=== PATIENT | male | born 1955 | race Caucasian/White ===

== ENCOUNTER → 2016-11-22 | Outpatient (CLI) | payer OTHER ==
[~2016-11-22] MED LIST: AMOX875T2 PO; CODE118S2 PO; LEVO500T80 PO; NAPR550T PO; RT-ALBUINH IH
--- OUTSIDE RECORDS SUMMARY | 2016-11-22 08:57 | XMS REPORT | Continuity of Care Document ---
Author Author [facility] Organization [facility] Address Unknown Phone Unavailable Care Team Providers Care Dice Spotter Name Role Phone BETTIE ZIEGLER MD PCP Insurance Providers Payer Name Policy Number Subscriber Name Relationship Self Pay Pending Annette Apprv [id number] Nanda Lema 18 Self / Same As Patient Advance Directives Directive Response Recorded Date/Time Advance Directives No 08/29/16 7:42am Health Care Power of Electromechanical Inspector No 08/29/16 7:42am Organ Donor No 08/29/16 7:42am Resuscitation Status Full Code 08/29/16 7:42am Problems No problem information available. Medications Current Home Medications Medication Dose Units Route Directions Days/Qty Instructions Start Date Amoxicillin 875 Mg 875 Mg Oral Twice A Day 08/12/16 Promethazine Hcl/Codeine 118 Ml 5 Ml Oral Every 4HRS as needed for Cough 08/12/16 Albuterol Sulfate 8.5 Gm 2 Puff Inhalation Four Times Daily 08/12/16 Levofloxacin 500 Mg 500 Mg Oral Daily 08/12/16 Naproxen Sodium (Naproxen) 550 Mg 550 Mg Oral Twice A Day as needed for Pain 08/12/16 Social History Social History Problem Response Recorded Date/Time Alcohol Use Occasionally Uses 08/29/2016 7:42am Recreational Drug Use No 08/29/2016 7:42am Recent Foreign Travel No 08/29/2016 1:40pm Recent Infectious Disease Exposure No 08/29/2016 1:40pm Sexually Transmitted Disease No 08/29/2016 7:42am HIV/AIDS No 08/29/2016 7:42am Smoking Status Current Everyday Smoker 08/29/2016 7:42am Type Used Cigarettes 08/29/2016 2:39pm Recent Hopitalizations No 08/29/2016 7:42am Sexually Transmitted Disease No 08/29/2016 7:42am Query Response Start Date Stop Date Smoking Status Current Everyday Smoker Hospital Discharge Instructions No hospital discharge instructions. Plan of Care Discharge Date 08/29/16 2:00pm Instructions/Education Provided Needle Biopsy of the Lung and Pleura Prescriptions See Medication Section Functional Status Query Response Date Recorded Patient Orientation Person Place Time Situation Normal For Age August 29, 2016 2:39pm Allergies, Adverse Reactions, Alerts No known allergies. Immunizations Name Given Type FLU TRIvalent 5 years - Adult 08/29/16 Administered Vital Signs Acute Vital Signs Vital Response Date/Time Temperature (Fahrenheit) 98.0 degrees F (97.6 - 99.5) 08/29/2016 2:00pm Temperature (Calculated Celsius) 36.79618 degrees C (36.4 - 37.5) 08/29/2016 12:30pm Temperature Source Temporal 08/29/2016 12:30pm Pulse Rate (adult) 60 bpm (60 - 90) 08/29/2016 2:00pm Respiratory Rate 18 bpm (12 - 24) 08/29/2016 2:00pm O2 Sat by Pulse Oximetry 96 % (88 - 100) 08/29/2016 2:00pm Blood Pressure 138/88 mm Hg 08/29/2016 2:00pm Blood Pressure Mean 106 mm Hg 08/29/2016 12:30pm Pain Numeric Pain Scale 0-No Pain 08/29/2016 2:00pm Pain Intensity 0 08/14/2016 9:45am Height (Feet) 5 feet 08/29/2016 8:01am Height (Inches) 7.00 inches 08/29/2016 8:01am Height (Calculated Centimeters) 170.475433 cm 08/29/2016 8:01am Weight (Pounds) 121 pounds 08/29/2016 8:01am Weight (Ounces) 3.0 oz 08/29/2016 8:01am Weight (Calculated Grams) 59655.73 gm 08/29/2016 8:01am Weight (Calculated Kilograms) 54.938786 kilograms 08/29/2016 8:01am Calculated BMI 19.0 08/29/2016 8:01am Results Laboratory Results Test Name Result Units Flags Reference Collection Date/Time Result Date/ Time Comments White Blood Count 14.5 10^3/uL H 4.3-11.0 08/01/2016 11:52am 08/01/2016 12:03pm Red Blood Count 3.59 10^6/uL L 4.35-5.85 08/01/2016 11:52am 08/01/2016 12 :03pm Hemoglobin 12.3 G/DL L 13.3-17.7 08/01/2016 11:52am 08/01/2016 12:03pm Hematocrit 34 % L 40-54 08/01/2016 11:52am 08/01/2016 12:03pm Mean Corpuscular Volume 95 FL 80-99 08/01/2016 11:52am 08/01/2016 12: 03pm Mean Corpuscular Hemoglobin 34 PG 25-34 08/01/2016 11:52am 08/01/2016 12:03pm Mean Corpuscular Hemoglobin Concent 36 G/DL 32-36 08/01/2016 11:52am 12:03pm Red Cell Distribution Width 12.7 % 10.0-14.5 08/01/2016 11:52am 2015 12:03pm Platelet Count 324 10^3/uL 130-400 08/01/2016 11:52am 08/01/2016 12: 03pm Mean Platelet Volume 10.0 FL 7.4-10.4 08/01/2016 11:52am 08/01/2016 12: 03pm Neutrophils (%) (Auto) 84 % H 42-75 08/01/2016 11:52am 08/01/2016 12: 03pm Lymphocytes (%) (Auto) 8 % L 12-44 08/01/2016 11:52am 08/01/2016 12:03pm Monocytes (%) (Auto) 7 % 0-12 08/01/2016 11:52am 08/01/2016 12:03pm Eosinophils (%) (Auto) 0 % 0-10 08/01/2016 11:52am 08/01/2016 12:03pm Basophils (%) (Auto) 0 % 0-10 08/01/2016 11:5208/01/2016 12:03pm Neutrophils # (Auto) 12.2 X 10^3 H 1.8-7.8 08/01/2016 11:5208/01/2016 12:03pm Lymphocytes # (Auto) 1.2 X 10^3 1.0-4.0 08/01/2016 11:52am 08/01/2016 12:03pm Monocytes # (Auto) 1.1 X 10^3 H 0.0-1.0 08/01/2016 11:52am 08/01/2016 12: 03pm Eosinophils # (Auto) 0.0 10^3/uL 0.0-0.3 08/01/2016 11:52am 08/01/2016 12:03pm Basophils # (Auto) 0.0 10^3/uL 0.0-0.1 08/01/2016 11:52am 08/01/2016 12 :03pm Neutrophils % (Manual) 83 % 08/01/2016 11:52am 08/01/2016 12:54pm Band Neutrophils 0 % 08/01/2016 11:52am 08/01/2016 12:54pm Lymphocytes % (Manual) 8 % 08/01/2016 11:52am 08/01/2016 12:54pm Monocytes % (Manual) 9 % 08/01/2016 11:52am 08/01/2016 12:54pm Eosinophils % (Manual) 0 % 08/01/2016 11:52am 08/01/2016 12:54pm Basophils % (Manual) 0 % 08/01/2016 11:52am 08/01/2016 12:54pm Blood Morphology Comment NORMAL 08/01/2016 11:5208/01/2016 12: 54pm Sodium Level 131 MMOL/L L 135-145 08/01/2016 11:52am 08/01/2016 12:31pm Potassium Level 3.8 MMOL/L 3.6-5.0 08/01/2016 11:52am 08/01/2016 12: 31pm Chloride Level 97 MMOL/L L 98-107 08/01/2016 11:52am 08/01/2016 12:31pm Carbon Dioxide Level 22 MMOL/L 21-32 08/01/2016 11:52am 08/01/2016 12: 31pm Anion Gap 12 MMOL/L 5-14 08/01/2016 11:52am 08/01/2016 12:31pm Blood Urea Nitrogen 5 MG/DL L 7-18 08/01/2016 11:52am 08/01/2016 12:31pm Creatinine 0.68 MG/DL 0.60-1.30 08/01/2016 11:52am 08/01/2016 12:31pm BUN/Creatinine Ratio 7 08/01/2016 11:52am 08/01/2016 12:31pm Estimat Glomerular Filtration Rate > 60 08/01/2016 11:52am 2015 12:31pm GFR INTERPRETIVE DATA UNITS FOR ESTIMATED GFR (eGFR): mL/min/1.73 M2 REFERENCE RANGE FOR ESTIMATED GFR (eGFR) eGFR NORMAL eGFR >60 MODERATELY DECREASED eGFR 30-59 SEVERLY DECREASED eGFR 15-29 KIDNEY FAILURE <15 (OR DIALYSIS) Glucose Level 94 MG/DL 70-105 08/01/2016 11:52am 08/01/2016 12:31pm Calcium Level 9.0 MG/DL 8.5-10.1 08/01/2016 11:52am 08/01/2016 12:31pm TB Test (QFT) Interpretation Indeterminate * Negative 08/01/2016 11: 52am 08/05/2016 9:40am TB Test (QFT) Nil 0.04 IU/mL 0.00-7.99 08/01/2016 11:52am 08/05/2016 9: 40am The Nil tube, the negative control, is important to determine if the patient has a pre-existing immune response due to any one of numerous stimuli (e.g. viral infection, etc.) which would provide a false-positive result. The value of the Nil tube must be <=8.0 IU/mL in order to have reliable results. If the IFN-gamma NIL level is > 8.0 IU/mL the results of the test is reported as indeterminate. The mitogen (PHA) control tube is important to assure that the patient has healthy and competent immune capabilities. This assay will also assure that the patient's cells have been collected, managed and incubated correctly. Patient's who are immunosuppressed/immunodeficient due to acquired immune deficiency (e.g. viral infections such as HIV, immunosuppressive drugs, etc.) or genetic immunodeficiency will have a weak or an absence of the PHA mitogen stimulated blastogenesis and thus will give a false negative result. The mitogen tube must be above the required IFN-gamma value of >=0.5 IU/mL greater than the Nil tube or the reported result of the test is considered indeterminate. The TB antigen tube which is coated with selected Mycobacterium tuberculosis antigens can only be interpreted if the Nil tube and mitogen tube meet the designated criteria. For the test to be considered positive, the TB antigen tube minus the Nil tube value must be >=0.35 IU/mL. 05/03/2015 TB Test (QFT) Mitogen Minus Nil 0.18 IU/mL L 0.50-10.00 08/01/2016 11: 52am 08/05/2016 9:40am TB Test (QFT) TB - Nil 0.01 IU/mL 0.00-0.34 08/01/2016 11:52am 2015 9:40am Test performed at [facility], CLIA# [id number] [address] [place] [address] Pending Laboratory Results Test Name Collection Date/Time Microbiology Results Procedure Source Result Collection Date/Time Result Date/Time Sputum Culture Sputum, Induced HAEMOPHILUS SP, NOT INFLUENZAE 08/01/2016 11: 51am 08/05/2016 10:59am Normal michael 08/01/2016 11:51am 08/05/2016 10:59am STREP, BETA HEMOLYTIC GROUP C 08/01/2016 11:51am 08/05/2016 10:59am Pending Microbiology Results Procedure Source Collection Date/Time Procedures Procedure Status Date Provider(s) DX BRONCHOSCOPE/LAVAGE Completed 08/14/16 KB LOYA DO Encounters Encounter Location Arrival/Admit Date Discharge/Depart Date Attending Provider Departed [facility] 08/29/16 6:58am 2:00pm KB LOYA DO Registered Clinic [facility] 08/22/16 12:12pm KB LOYA DO Departed [facility] 08/14/16 6:47am 10:10am KB LOYA DO Registered Clinic [facility] 08/12/16 5:43am KB LOYA DO Registered Clinic [facility] 08/01/16 11:37am KB LOYA DO
--- NOTE | 2016-11-22 10:11 | Diagnostic Imaging Report ---
PROCEDURE: CT chest without contrast. TECHNIQUE: Multiple contiguous axial images were obtained through the chest without the use of intravenous contrast. INDICATION: COPD. Lung mass. COMPARISON: 09/25/2016. FINDINGS: The previously seen left upper lobe anterior cavitary lesion with mass is now reduced to a nodule with no remaining cavitation seen. The lesion measures 3 x 1.5 x 1.5 cm and is smaller compared to the previous study with comparable measurements of 3.9 x 1.3 cm are obtained. There is no other consolidation, mass or suspicious nodule seen in the left lung. The right lung demonstrates a calcified granuloma in the right middle lobe and mild scarring in the inferior aspect of the right middle lobe. There is no pleural or pericardial effusion. The thoracic aorta is normal in caliber. There are calcified granulomas in the right hilum and in the mediastinum with no significantly enlarged lymph nodes seen. No enlarged axillary nodes are noted. The osseous structures demonstrate mild degenerative changes. IMPRESSION: 3 cm elongated pulmonary nodule in the left upper lobe with resolution of previously seen cavitary component. The lesion is slightly smaller compared to the previous study. Correlate clinically and with biopsy results. Dictated by: Dictated on workstation # [id number]
== END ==
LOC: RAD 08:51
PROVIDERS: ATTEND Internal Medicine Critical Care Medicine
DX: R91.8 Other nonspecific abnormal finding of lung field (principal); J44.9 Chronic obstructive pulmonary disease, unspecified; Z72.0 Tobacco use; R91.1 Solitary pulmonary nodule
CPT/HCPCS: 71250

== ENCOUNTER → 2017-05-26 | Outpatient (CLI) | payer OTHER ==
--- NOTE | 2017-05-26 10:10 | Diagnostic Imaging Report ---
PROCEDURE: CT chest without contrast. TECHNIQUE: Multiple contiguous axial images were obtained through the chest without the use of intravenous contrast. INDICATION: Six-month followup pulmonary nodule. Comparison made with study from 11/22/2016. The consolidating lesion in the left upper lobe is present measuring 8 x 15 mm axial plane on image 30. An identical slice the prior study it measured 18 x 11 mm, so this has shown slight interval reduction in size. There appears to be some extension to the mediastinum and peripheral pleura a small linear fibrotic bands. This also is unchanged. There is calcified granuloma in the right lung with some small calcified hilar lymph nodes on the right as well some calcified subcarinal mediastinal lymph nodes. There is coronary atherosclerosis present. There are no infiltrates, effusions or pneumothoraces. IMPRESSION: Left upper lobe consolidation showing interval reduction in size and likely represents scar. Dictated by: Dictated on workstation # [id number]
== END ==
LOC: RAD 08:41
PROVIDERS: ATTEND Internal Medicine Critical Care Medicine
DX: R91.8 Other nonspecific abnormal finding of lung field (principal); J44.9 Chronic obstructive pulmonary disease, unspecified; Z72.0 Tobacco use
CPT/HCPCS: 71250

== ENCOUNTER 2018-02-10 10:01 | Inpatient (IN) | payer OTHER ==
[~2018-02-10] VITALS: Ht 170.2 cm; Wt 54.5 kg
[2018-02-10] VITALS (15 sets, daily range): BP systolic 97–127; BP diastolic 54–74
[~2018-02-10 10:01] MED LIST changes: +NAPR-1070 PO; -NAPR550T PO
[2018-02-10 10:25] LABS: BASOPHILS % (AUTO) 0 % (0-10); EOSINOPHILS % (AUTO) 0 % (0-10); HEMATOCRIT 32 % (40-54); LYMPHOCYTES # (AUTO) 1.7 X 10^3 (1.0-4.0); LYMPHOCYTES % (AUTO) 6 % (12-44); MEAN CORPUSCULAR HEMOGLOBIN 33 PG (25-34); MEAN CORPUSCULAR HGB CONC 35 G/DL (32-36); MEAN CORPUSCULAR VOLUME 95 FL (80-99); MEAN PLATELET VOLUME 9.7 FL (7.4-10.4); MONOCYTES # (AUTO) 2.2 X 10^3 (0.0-1.0); MONOCYTES % (AUTO) 8 % (0-12); NEUTROPHILS # (AUTO) 25.9 X 10^3 (1.8-7.8); NEUTROPHILS % (AUTO) 87 % (42-75); PLATELET COUNT 642 10^3/uL (130-400); RED BLOOD COUNT 3.37 10^6/uL (4.35-5.85); RED CELL DISTRIBUTION WIDTH 13.5 % (10.0-14.5); WHITE BLOOD COUNT 29.9 10^3/uL (4.3-11.0)
[2018-02-10] MEDS ORDERED: NS 100 ML (IVPB) BAG IV ONE (10:30)
[2018-02-10] MEDS ORDERED: IOHEXOL 350 MG/ML 150 ML (OMNIPAQUE 350) VIAL IV ONE (10:30)
[2018-02-10 10:47] LABS: BAND NEUTROPHILS 8 %; BASOPHILS % (MANUAL) 0 %; EOSINOPHILS % (MANUAL) 0 %; LYMPHOCYTES % (MANUAL) 7 %; MONOCYTES % (MANUAL) 6 %; NEUTROPHILS % (MANUAL) 79 %; RBC MORPH NORMAL
[2018-02-10 10:52] LABS: ALANINE AMINOTRANSFERASE 90 U/L (0-55); ALBUMIN 3.2 GM/DL (3.2-4.5); ALKALINE PHOSPHATASE 124 U/L (40-136); BILIRUBIN,TOTAL 0.5 MG/DL (0.1-1.0); BUN/CREATININE RATIO 14; CALCIUM 9.1 MG/DL (8.5-10.1); CARBON DIOXIDE 22 MMOL/L (21-32); CHLORIDE 94 MMOL/L (98-107); CREATININE SERUM 0.97 MG/DL (0.60-1.30); GFR ESTIMATED > 60; GLUCOSE 100 MG/DL (70-105); SODIUM 128 MMOL/L (135-145); TOTAL PROTEIN 7.2 GM/DL (6.4-8.2)
--- NOTE | 2018-02-10 12:04 | Diagnostic Imaging Report ---
PROCEDURE: CT angiography of the chest with contrast. TECHNIQUE: Multiple contiguous axial images were obtained through the chest after uneventful bolus administration of intravenous contrast. Reconstructed CTA MIP acquisitions were also performed. INDICATION: Difficulty breathing, congestion, cough, weakness with chest pain. Exam compared with the nonenhanced chest CT 05/26/2017. FINDINGS: There are no intraluminal pulmonary arterial filling defects. There is no findings of pulmonary arterial embolus. Patent thoracic aorta is nonaneurysmal. No effusion or pneumothorax. There is dense irregular infiltrate and consolidation most notably in the left upper lobe posteriorly with internal parenchymal gas/fluid collection suspicious for abscesses versus necrotic tumor. Largest of these gas/fluid collections measures 5.2 cm laterally, next largest posterosuperiorly measures 3.5 cm. These were comprised of air. The lung parenchyma peripherally shows denser air space consolidation. We note this process is separable from an area of curvilinear presumed scarring in the left upper lobe more anteromedially and inferiorly, that focus stable from the prior CT. Remaining findings all new. Posterior to the major fissure involving the superior segment of the left lower lobe is confluent, irregular parenchymal consolidation and partial cavitation measuring 1.7 cm. Scattered peripheral pulmonary cysts which are redemonstrated. There is some very mild hazy groundglass opacity in the lingular segment of the left upper lobe anteroinferiorly and minimally involving the subpleural left lower lobe, left lower lobe disease of the posterior sulcus likely atelectasis. The right lung is essentially clear. There is no pneumothorax. New AP window lymphadenopathy which could be reactive or metastatic. These nodes measured up to 1.2 cm. Paratracheal and pericarinal mediastinum unremarkable. There is calcified granulomatous disease in the subcarinal mediastinum chronic and benign. No pneumothorax. No suspicious osseous lesion. Visualized upper abdomen reveals some heterogeneity and heterogeneous hepatomegaly with no discrete adrenal mass, some low-density thickening of the left adrenal stable likely hyperplasia. IMPRESSION: Irregular infiltrate with areas of cavitation in the left upper lobe has developed with partial involvement superior segment of the adjacent left lower lobe. Pneumonia in formation of parenchymal abscesses suspected. A neoplastic process however could not be excluded. AP window adenopathy reactive most likely versus less likely metastatic. No pneumothorax. No evidence for an empyema. Underlying COPD and cyst formation chronic. No acute chest wall pathology. Negative for PE or acute aortic disease. Dictated by: Dictated on workstation # [id number]
[2018-02-10] MEDS ORDERED: PIPERACILLIN SODIUM/TAZOBACTAM 4.5 GM in NS (IVPB) 100 ML IV NR (12:30)
[2018-02-10] MEDS ORDERED: CATHETER FLUSH 10 ML SYR IV PRN (12:45)
--- NOTE | 2018-02-10 12:59 | History & Physical-Hospitalist ---
History of Present Illness HPI/Chief Complaint Pt is a 62yoCM with a PMH of COPD who was direct admitted from Dr Chapa's office for concerns of pneumonia. He was seen in Dr Chapa's office to follow up a recent pneumonia diagnosis from [facility]. He was given Azithromycin and told to follow up with Dr Chapa. He reports that he has continued cough and sputum production. He denies hemoptysis. He was also febrile intermittently but has not had fevers over the past few days. Despite this he has been coughing more and feeling more short of breath. He was sent for CT and labs from Dr Chapa's office and was found to have a significant leukocytosis of 29k so he was direct admitted for IV abx. In the office his systolic BP was 94 (DBP not available to me) so he was admitted to the ICU. Source: patient Date Seen 02/10/18 Time Seen by Provider: 12:25 Attending Physician Law Whiteside MD PCP Giorgi Boland MD Referring Physician Date of Admission February 10, 2018 at 12:01 pm Home Medications & Allergies Home Medications Reviewed patient Home Medication Reconciliation performed by pharmacy medication reconciliations electronics warfare technician and/or nursing. Patients Allergies have been reviewed. Allergies Allergies Coded Allergies No Known Drug Allergies (Esxrywnrvn18/31/16) Past Wyebwnk-Mwtptk-Cevthe Hx Past Med/Social Hx: Reviewed and Corrections made Patient Social History Marrital Status: Alcohol Use: Regular Use Number of Drinks Today: 0 Alcohol Beverage of Choice: Beer (8-10) Recreational Drug Use: No Smoking Status: Current Everyday Smoker (70 pack year history) Cigaretts per day: 20 Type Used: Cigarettes Recent Foreign Travel: No Contact w/other who traveled: No Recent Hopitalizations: No Immunizations Up To Date Tetanus Booster (TDap): Unknown Seasonal Allergies Seasonal Allergies: No Past Medical History Surgeries: Eye Surgery, Orthopedic (multiple surgeries on toes) Respiratory: COPD, Pneumonia Currently Using CPAP: No Currently Using BIPAP: No Reproductive: No Sexually Transmitted Disease: No HIV/AIDS: No Musculoskeletal: Arthritis, Chronic Back Pain Loss of Vision: Denies Hearing Impairment: Denies Adverse Reaction to Blood Blanco: No (N/A) Family History Reviewed and Corrections made No Pertinent Family Hx Review of Systems Constitutional: No chills, No diaphoresis; fever, weight loss EENTM: No blurred vision, No double vision, No nose congestion, No throat pain Respiratory: cough, dyspnea on exertion; No hemoptysis, No orthopnea; phlegm, short of breath, wheezing Cardiovascular: No chest pain, No edema, No palpitations Gastrointestinal: No abdominal pain, No constipation, No diarrhea; loss of appetite; No nausea, No vomiting Genitourinary: No dysuria, No frequency Musculoskeletal: No joint pain, No muscle pain Skin: No lesions, No rash Psychiatric/Neurological: Denies Depressed, Denies Headache, Denies Numbness, Denies Tingling All Other Systems Reviewed Negative Unless Noted: Yes (Negative excepted noted.) Physical Exam Physical Exam Vital Signs Vital Signs - First Documented 02/10/18 12:05 Temp 97.0 O2 Delivery Room Air Capillary Refill : General Appearance: No Apparent Distress, Chronically ill, Thin HEENT: PERRL/EOMI, Moist Mucous Membranes; No Scleral Icterus (L), No Scleral Icterus (R) Neck: Non Tender, Supple Respiratory: No Accessory Muscle Use, No Respiratory Distress, Wheezing Cardiovascular: Regular Rate, Rhythm, No Murmur Gastrointestinal: Normal Bowel Sounds, Non Tender, Soft Extremity: Normal Capillary Refill, No Calf Tenderness, No Pedal Edema Neurologic/Psychiatric: Alert, Oriented x3, No Motor/Sensory Deficits, Normal Mood/Affect Skin: Normal Color, Warm/Dry Results Results/Procedures Labs Laboratory Tests 02/10/18 10:20 Patient resulted labs reviewed. Imaging: Reviewed Imaging Report Assessment/Plan Admission Diagnosis CAP Admission Status: Inpatient Order (span 2 midnights) Reason for Inpatient Admission: Failed outpatient antibiotics Diagnosis/Problems Diagnosis/Problems (1) CAP (community acquired pneumonia) Status: Acute Assessment & Plan: CT chest revealed infiltrate and finding concerns for neoplasm Vanc/Zosyn started by Dr Chapa Will get sepsis labs given leukocytosis Does not meet sepsis criteria currently Qualifiers: Laterality: left Lung location: upper lobe of lung Qualified Codes: J18.1 - Lobar pneumonia, unspecified organism (2) COPD (chronic obstructive pulmonary disease) Status: Chronic Assessment & Plan: MAT protocol Will start prednisone Consult Pulm, appreciate assistance Satting well now on room air Qualifiers: COPD type: chronic bronchitis Chronic bronchitis type: unspecified Qualified Codes: J42 - Unspecified chronic bronchitis (3) Leukocytosis Status: Acute Assessment & Plan: On abx as above Will trend Does not meet sepsis criteria currently Qualifiers: Leukocytosis type: bandemia Qualified Codes: D72.825 - Bandemia (4) Hyponatremia Assessment & Plan: Na 128 Appears chronic (Na 131 in 07/2016) Likely due to alcohol intake though (5) Transaminitis Assessment & Plan: Likely alcohol induce Trend (6) Thrombocytosis Assessment & Plan: Likely reactive Trend (7) Prophylactic measure Assessment & Plan: Lovenox NS 100ml/hr Reg Diet LAW WHITESIDE MD February 10, 2018 12:59 pm
[2018-02-10] MEDS ORDERED: VANCOMYCIN INJECTION 1,250 MG in NS (IVPB) 250 ML IV NR (13:00)
[2018-02-10] MEDS ORDERED: GLYC10.7 IH (13:10)
[2018-02-10] MEDS ORDERED: NYQUIL LIQUID PO (13:10)
[2018-02-10] MEDS ORDERED: NAPR220T66 PO (13:10)
[2018-02-10] MEDS ORDERED: THERAFLU PO (13:10)
[2018-02-10 13:28] LABS: AMYLASE 36 U/L (25-125); LIPASE 20 U/L (8-78)
[2018-02-10] MEDS: ENOXAPARIN 40 MG/0.4 ML (LOVENOX) SYR SC SCH (13:37)
[2018-02-10] MEDS ORDERED: 1/2 NS IV SOLUTION 1,000 ML IV PRN (13:37)
[2018-02-10] MEDS: NS IV 1000 ML 1,000 ML IV SCH ×2 (13:44→23:20)
[2018-02-10] MEDS ORDERED: ACETAMINOPHEN 500 MG TAB (TYLENOL) PO PRN ×2 (13:45→14:00)
[2018-02-10] MEDS ORDERED: LORazepam INJ 2 MG/ML (ATIVAN) VIAL IM/IV PRN (13:45)
[2018-02-10] MEDS ORDERED: ANTACID SUSP 30 ML UDC (MYLANTA) PO PRN (13:45)
[2018-02-10] MEDS ORDERED: MELATONIN 3 MG TABLET PO PRN (13:45)
[2018-02-10] MEDS ORDERED: BENZONATATE 100 MG (TESSALON) CAPSULE PO PRN (13:45)
[2018-02-10] MEDS ORDERED: ONDANSETRON 4 MG/2 ML (SDV) Z0FRAN IV PRN (13:45)
[2018-02-10] MEDS ORDERED: guaiFENesin SYRUP 100 MG/5 ML 10 ML (ROBITUSSIN SF) PO PRN (13:45)
[2018-02-10] MEDS ORDERED: MILK OF MAGNESIA 400 MG/5 ML 30 ML UDC PO PRN (13:45)
[2018-02-10] MEDS ORDERED: LORazepam 1 MG (ATIVAN) TAB PO PRN (13:45)
[2018-02-10] MEDS ORDERED: ONDANSETRON 4 MG (ZOFRAN) ORAL DISSOLVE TAB SL PRN (13:45)
[2018-02-10] MEDS ORDERED: D5 1/2 NS 1000 ML IV SOLUTION 1,000 ML IV PRN (13:45)
[2018-02-10] MEDS ORDERED: LORazepam INJ 2 MG/ML (ATIVAN) VIAL IV PRN (13:45)
[2018-02-10] MEDS: CATHETER FLUSH 10 ML SYR IV SCH ×2 (14:15→22:41)
[2018-02-10] MEDS ORDERED: RT-ALBUTEROL/IPRATROPIUM 3 ML (DUONEB) VIAL INH PRN (14:30)
[2018-02-10] MEDS: predniSONE 20 MG TAB PO SCH (14:53)
[2018-02-10] MEDS: PIPERACILLIN SODIUM/TAZOBACTAM 4.5 GM in NS (IVPB) 100 ML IV SCH (18:14)
[2018-02-10] MEDS: RT-ALBUTEROL/IPRATROPIUM 3 ML (DUONEB) VIAL INH SCH ×2 (18:45→22:36)
--- NOTE | 2018-02-10 19:45 | Diagnostic Imaging Report ---
PROCEDURE: US Abdomen, limited. TECHNIQUE: Multiple realtime grayscale images were obtained over the abdomen in various projections. INDICATION: Elevated liver enzymes and right upper quadrant pain. FINDINGS: The liver is normal in size. There is homogeneous echogenicity throughout the liver. No discrete liver mass is identified. The gallbladder is without stones or sludge. No wall thickening or pericholecystic fluid is seen. There is no biliary ductal dilatation. The pancreas is unremarkable. The right kidney is unremarkable. There is no ascites. IMPRESSION: Unremarkable right upper quadrant ultrasound. Dictated by: Dictated on workstation # [id number]
[2018-02-11] VITALS (18 sets, daily range): BP systolic 81–118; BP diastolic 57–72
[2018-02-11] MEDS: RT-ALBUTEROL/IPRATROPIUM 3 ML (DUONEB) VIAL INH SCH ×6 (02:06→22:56)
[2018-02-11] MEDS: PIPERACILLIN SODIUM/TAZOBACTAM 4.5 GM in NS (IVPB) 100 ML IV SCH ×3 (02:25→19:00)
[2018-02-11 02:54] LABS: ALTERNARIA MOLD RAST <0.35 kU/L (<0.35); RAGWEED RAST <0.35 kU/L (<0.35)
[2018-02-11 03:55] LABS: BASOPHILS % (AUTO) 0 % (0-10); EOSINOPHILS % (AUTO) 0 % (0-10); HEMATOCRIT 30 % (40-54); HEMOGLOBIN 10.3 G/DL (13.3-17.7); LYMPHOCYTES # (AUTO) 1.2 X 10^3 (1.0-4.0); LYMPHOCYTES % (AUTO) 5 % (12-44); MEAN CORPUSCULAR HGB CONC 34 G/DL (32-36); MEAN CORPUSCULAR VOLUME 96 FL (80-99); MEAN PLATELET VOLUME 9.9 FL (7.4-10.4); MONOCYTES # (AUTO) 0.9 X 10^3 (0.0-1.0); MONOCYTES % (AUTO) 4 % (0-12); NEUTROPHILS # (AUTO) 21.7 X 10^3 (1.8-7.8); NEUTROPHILS % (AUTO) 91 % (42-75); PLATELET COUNT 627 10^3/uL (130-400); RED BLOOD COUNT 3.17 10^6/uL (4.35-5.85); RED CELL DISTRIBUTION WIDTH 13.7 % (10.0-14.5); WHITE BLOOD COUNT 23.8 10^3/uL (4.3-11.0)
[2018-02-11 03:56] LABS: MEAN CORPUSCULAR HEMOGLOBIN 32 PG (25-34)
[2018-02-11 04:07] LABS: INR 1.1 (0.8-1.4); PROTHROMBIN TIME PATIENT 14.1 SEC (12.2-14.7)
[2018-02-11 04:25] LABS: ALANINE AMINOTRANSFERASE 85 U/L (0-55); ALBUMIN 2.7 GM/DL (3.2-4.5); ALKALINE PHOSPHATASE 102 U/L (40-136); BILIRUBIN,TOTAL 0.3 MG/DL (0.1-1.0); BUN/CREATININE RATIO 19; CALCIUM 8.7 MG/DL (8.5-10.1); CARBON DIOXIDE 23 MMOL/L (21-32); CHLORIDE 102 MMOL/L (98-107); CREATININE SERUM 0.73 MG/DL (0.60-1.30); GFR ESTIMATED > 60; GLUCOSE 136 MG/DL (70-105); POTASSIUM 4.4 MMOL/L (3.6-5.0); SODIUM 134 MMOL/L (135-145); TOTAL PROTEIN 6.4 GM/DL (6.4-8.2)
[2018-02-11] MEDS: CATHETER FLUSH 10 ML SYR IV SCH ×3 (04:56→19:54)
--- NOTE | 2018-02-11 05:34 | Pulmonary Consultation ---
History of Present Illness History of Present Illness Date of Consultation 02/11/18 05:25 Time Seen by Provider: 05:25 Date of Admission History of Present Illness 62yo with hx of severe COPD directly admitted from my office yesterday secondary to pneumonia and leukocytosis of 30. Pt failed out patient treatment with azithromycin that was given at [facility]. PT has persistent sputum production and SOB. Pt's SBP was [address] scan shows increasing JACKLYN cavitary mass. PT denies hemoptysis. He has had a bronchoscopy and CT guided lung bx which was also negative. I am consulted for pulmonary management. Allergies and Home Medications Allergies Coded Allergies: No Known Drug Allergies (Unverified , 08/12/16) Home Medications Glycopyrrolate/Formoterol Fum 10.7 Gm Hfa.aer.ad, 2 PUFF IH BID, (Reported) Naproxen Sodium 220 Mg Tablet, 440 MG PO Q8H PRN for PAIN-MILD, (Reported) [Nyquil Liquid] , PO UD PRN for COUGH/COLD, (Reported) [Theraflu] , PO UD PRN for COUGH/COLD, (Reported) Past Utjxjvc-Rnzgmp-Fbdenz Hx Past Med/Social Hx: Reviewed and Corrections made Patient Social History Alcohol Use: Regular Use Number of Drinks Today: 0 Alcohol Beverage of Choice: Beer (8-10) Recreational Drug Use: No Smoking Status: Current Everyday Smoker (70 pack year history) Type Used: Cigarettes Recent Foreign Travel: No Contact w/Someone Who Travel: No Recent Infectious Disease Expo: No Recent Hopitalizations: No Immunizations Up To Date Tetanus Booster (TDap): Unknown Seasonal Allergies Seasonal Allergies: No Past Medical History Surgeries: Yes (EYE SURGERY, TOE SURGERY, WARTS REMOVED) Eye Surgery, Orthopedic (multiple surgeries on toes) Respiratory: Yes (LUNG MASS) Pneumonia, COPD Currently Using CPAP: No Currently Using BIPAP: No Cardiac: No Neurological: No Reproductive Disorders: No Sexually Transmitted Disease: No HIV/AIDS: No Genitourinary: No Gastrointestinal: No Musculoskeletal: Yes Arthritis, Chronic Back Pain Endocrine: No HEENT: No Loss of Vision: Denies Hearing Impairment: Denies Cancer: No Psychosocial: No Integumentary: No Blood Disorders: No Adverse Reaction/Blood Tranf: No (N/A) Family Medical History Reviewed and Corrections made No Pertinent Family Hx Review of Systems Time Seen by Provider: 05:44 Constitutional: Fever, Sweats, Weakness, Malaise Eyes: No: Pain, Vision change, Conjunctivae inflammation, Eyelid inflammation, Other, Redness ENT: No: Ear pain, Ear discharge, Nose pain, Nose discharge, Nose congestion, Mouth pain, Mouth swelling, Throat pain, Throat swelling, Other Respiratory: Cough, Shortness of breath, SOB with excertion, Sputum; No: Hemoptysis Cardiovascular: Palpitations, Orthopnea, Paroxysmal Noc. Dyspnea Gastrointestinal: No: Nausea, Vomiting, Abdominal Pain, Diarrhea, Constipation , Melena, Hematochezia, Other Genitourinary: No Dysuria, No Frequency, No Incontinence, No Hematuria, No Retention, No Other Neurological: Weakness Exam Exam Vital Signs Date Time Temp Pulse Resp B/P (MAP) Pulse Ox O2 Delivery O2 Flow Rate FiO2 02/11/18 04:00 Room Air 02/11/18 03:00 55 10 104/65 (78) 96 Room Air 02/11/18 02:06 98 Room Air 02/11/18 02:00 53 15 110/66 (81) 97 Room Air 02/11/18 01:00 60 02/11/18 01:00 60 29 118/68 (85) 97 Room Air 02/11/18 00:00 54 22 112/62 (79) 98 Room Air 02/11/18 00:00 Room Air 02/10/18 23:00 59 20 101/60 (74) 96 Room Air 02/10/18 22:37 97 Room Air 02/10/18 22:00 61 15 99/64 (76) 95 Room Air 02/10/18 21:00 69 16 98/63 (75) 95 Room Air 02/10/18 20:00 84 13 103/67 (79) 98 Room Air 02/10/18 20:00 Room Air 02/10/18 19:59 97.1 Room Air 02/10/18 19:00 75 02/10/18 19:00 75 22 116/69 (85) 95 Room Air 02/10/18 18:45 95 Room Air 02/10/18 18:06 99.9 02/10/18 18:00 76 18 119/72 (88) 95 Room Air 02/10/18 17:00 75 27 110/60 (77) 98 Room Air 02/10/18 16:15 Room Air 02/10/18 16:00 78 20 97/54 (68) 94 Room Air 02/10/18 15:00 70 21 99/58 (72) 100 Room Air 02/10/18 14:07 70 02/10/18 14:00 70 15 126/72 (90) 99 Room Air 02/10/18 13:00 65 7 110/69 (83) 98 Room Air 02/10/18 13:00 62 02/10/18 12:45 63 12 123/67 (85) 98 Room Air 02/10/18 12:30 67 22 114/74 (87) 98 Room Air 02/10/18 12:15 75 22 123/71 (88) 98 Room Air 02/10/18 12:10 Room Air 02/10/18 12:05 97.0 Room Air 02/10/18 12:05 66 13 127/71 (89) 100 Room Air 02/10/18 11:55 70 I & O 02/11/18 07:00 Intake Total 1687.5 ml Output Total 1050 ml Balance 637.5 ml General Appearance: No Apparent Distress, Chronically ill, Thin HEENT: PERRL/EOMI, Moist Mucous Membranes; No Scleral Icterus (L), No Scleral Icterus (R) Neck: Non Tender, Supple Respiratory: No Accessory Muscle Use, No Respiratory Distress, Wheezing Cardiovascular: Regular Rate, Rhythm, No Murmur Extremity: Normal Capillary Refill, No Calf Tenderness, No Pedal Edema Neurologic/Psychiatric: Alert, Oriented x3, No Motor/Sensory Deficits, Normal Mood/Affect Skin: Normal Color, Warm/Dry Results Lab Laboratory Tests 02/10/18 10:20 02/11/18 03:36 Assessment/Plan Assessment/Plan -JACKLYN cavitary mass with lung abscess vs cancer -Will do bronchoscopy this AM -Continue Vanco and Zosyn -Pt will probably need 3wks of Abx therapy for lung abscess -Carter cultures pending Hyponatremia -Monitor Alcohol dependance -Monitor for withdrawals KB LOYA DO February 11, 2018 05:34
[2018-02-11] MEDS ORDERED: MIDAZOLAM 5 MG/5 ML (VERSED) VIAL ONE ×2 (05:45→05:58)
[2018-02-11] MEDS ORDERED: fentaNYL INJECTION 100 MCG/2 ML AMP ONE ×2 (05:45→05:58)
[2018-02-11] MEDS ORDERED: LIDOCAINE 4% INJ (XYLOCAINE) 5ML AMP INJ ONE (06:00)
[2018-02-11] MEDS ORDERED: MIDAZOLAM 10 MG/2 ML (VERSED) VIAL IVP ONE (06:00)
[2018-02-11] MEDS ORDERED: LIDOCAINE JELLY 2% (XYLOCAINE) 30 ML TUBE TOP ONE (06:00)
[2018-02-11] MEDS ORDERED: LIDOCAINE PF 1% 2 ML AMP INJ ONE (06:00)
[2018-02-11] MEDS ORDERED: fentaNYL INJECTION 250 MCG/5 ML AMP IVP ONE (06:00)
[2018-02-11] MEDS ORDERED: NALOXONE 0.4 MG/ML 1 ML (NARCAN) VIAL ONE (06:37)
[2018-02-11] MEDS ORDERED: NALOXONE 0.4 MG/ML 1 ML (NARCAN) VIAL IV ONE (06:45)
--- NOTE | 2018-02-11 06:45 | Pulmonary Procedures ---
Pulmonary Procedures Date of Procedure Date of Service: February 11, 2018 Bronch Bronchoscopy with bronchoalveolar lavage (BAL), transbronchial washes of JACKLYN Preop DX Cavitary lesion Postop DX: same. No endobronchial mass. Complications: none After informed consent obtained and formal time out pt was sedated using Fentanyl and Versed. Bronchoscope was advanced through the nare and vocal cords. 1% lidocaine was used to anesthetize vocal cords, epiglottis, myrna, and left/right main stem bronchus. An anatomical tour was undertaken down to the segmental bronchi bilaterally. No endobronchial lesions noted. From the JACKLYN a bronchoalveolar lavage (BAL), transbronchial washes were obtained. Pt tolerated procedure well. No complications noted. Stat CXR is pending. KB LOYA DO February 11, 2018 06:45
--- NOTE | 2018-02-11 07:46 | Diagnostic Imaging Report ---
INDICATION: Post bronchoscopy. Comparison with 08/29/2016. FINDINGS: Consolidated infiltrate is noted in the left upper lung with some volume loss. Left lower lobe and right lung are clear. No evidence of pneumothorax or pleural effusion. Heart is not enlarged. IMPRESSION: Consolidated infiltrate left upper lung. No evidence of pneumothorax. Dictated by: Dictated on workstation # [id number]
--- NOTE | 2018-02-11 08:08 | Progress Note-Hospitalist ---
Subjective HPI/CC On Admission Date Seen by Provider: February 11, 2018 Time Seen by Provider: 08:02 Pt is a 62yoCM with a PMH of COPD who was direct admitted from Dr Chapa's office for concerns of pneumonia. He was seen in Dr Chapa's office to follow up a recent pneumonia diagnosis from [facility]. He was given Azithromycin and told to follow up with Dr Chapa. He reports that he has continued cough and sputum production. He denies hemoptysis. He was also febrile intermittently but has not had fevers over the past few days. Despite this he has been coughing more and feeling more short of breath. He was sent for CT and labs from Dr Chapa's office and was found to have a significant leukocytosis of 29k so he was direct admitted for IV abx. In the office his systolic BP was 94 (DBP not available to me) so he was admitted to the ICU. Subjective/Events-last exam Pt is a sleepy after his procedure this AM. Otherwise no complaints. Still coughing. Asking for food. Focused Exam Lactate Level 02/10/18 12:41: Lactic Acid Level 1.72 Objective Exam Vital Signs Vital Signs Date Time Temp Pulse Resp B/P (MAP) Pulse Ox O2 Delivery O2 Flow Rate FiO2 02/11/18 06:54 100 Room Air 02/11/18 06:00 99 11 115/65 (82) 02/10/18 19:59 97.1 Capillary Refill : General Appearance: No Apparent Distress, Chronically ill, Thin Respiratory: No Respiratory Distress, Wheezing Cardiovascular: Regular Rate, Rhythm, No Murmur Gastrointestinal: Normal Bowel Sounds, Soft Neurologic/Psychiatric: Alert, Oriented x3, Other (sleepy) Skin: Normal Color, Warm/Dry Results/Procedures Lab Laboratory Tests 02/10/18 10:20 02/11/18 03:36 Patient resulted labs reviewed. Imaging: Reviewed Imaging Report Assessment/Plan Assessment and Plan Assess & Plan/Chief Complaint CAP and lung abscess Diagnosis/Problems Diagnosis/Problems (1) CAP (community acquired pneumonia) Status: Acute Assessment & Plan: CT chest revealed infiltrate and finding concerns for neoplasm Vanc/Zosyn started by Dr Chapa Bronch done with AM will await cultures Will likely need long course of abx given abscess Qualifiers: Laterality: left Lung location: upper lobe of lung Qualified Codes: J18.1 - Lobar pneumonia, unspecified organism (2) COPD (chronic obstructive pulmonary disease) Status: Chronic Assessment & Plan: MAT protocol Continue prednisone Consult Pulm, appreciate assistance Continue home inhalers Qualifiers: COPD type: chronic bronchitis Chronic bronchitis type: unspecified Qualified Codes: J42 - Unspecified chronic bronchitis (3) Leukocytosis Status: Acute Assessment & Plan: On abx as above Improving Does not meet sepsis criteria currently Qualifiers: Leukocytosis type: bandemia Qualified Codes: D72.825 - Bandemia (4) Hyponatremia Assessment & Plan: Improving, 134 Appears chronic (Na 131 in 07/2016) Likely due to alcohol intake though (5) Transaminitis Assessment & Plan: Likely alcohol induce Trend (6) Thrombocytosis Assessment & Plan: Likely reactive Trend (7) Alcohol abuse Status: Chronic Assessment & Plan: drinks 8-10 beers per day CIWA assess and protocol Has never had withdrawal symptoms before even with few days abstinence (8) Prophylactic measure Assessment & Plan: Lovenox NS 100ml/hr Reg Diet Clinical Quality Measures DVT/VTE Risk/Contraindication: Risk Factor Score Per Nursin RFS Level Per Nursing on Admit: 3=High LAW CRAFT MD February 11, 2018 08:08
[2018-02-11] MEDS: NS IV 1000 ML 1,000 ML IV SCH ×2 (09:26→19:54)
[2018-02-11] MEDS: predniSONE 20 MG TAB PO SCH (10:41)
[2018-02-11] MEDS: MULTIVIT W/MINERALS TAB (THERAGRAN M) PO SCH (10:41)
[2018-02-11] MEDS: FOLIC ACID 1 MG TAB PO SCH (10:41)
[2018-02-11] MEDS: THIAMINE 100 MG (VITAMIN B-1) TAB PO SCH (10:44)
--- NOTE | 2018-02-11 11:36 | Physical Therapy Evaluation ---
PT Evaluation-General Medical Diagnosis Admission Date February 10, 2018 at 12:01 Medical Diagnosis: sepsis Onset Date: February 10, 2018 Therapy Diagnosis Therapy Diagnosis: debility/weakness Height/Weight Height (Feet): 5 Height (Inches): 7.00 Weight (Pounds): 120 Weight (Ounces): 3.0 Precautions Precautions/Isolations: Fall Prevention, Standard Precautions Weight Bear Status Right Lower Extremity: Right Weight Bearing/Tolerated Left Lower Extremity: Left Weight Bearing/Tolerated Referral Physician: Stevo Reason for Referral: Evaluation/Treatment Medical History Pertinent Medical History: Alcoholism, COPD, Smoking Additional Medical History lung abscess Current History Direct admit from Dr. Chapa's office Reviewed History: Yes Social History Home: Single Level Current Living Status: Alone Prior/Core FIM Prior Level of Function Functional [place] Measure 0=Not Assessed/NA 4=Minimal Assistance 1=Total Assistance 5=Supervision or Setup 2=Maximal Assistance 6=Modified [place] 3=Moderate Assistance 7=Complete [place] Bed Mobility: 7 Transfers (B,C,W/C) (FIM): 7 Gait: 7 PT Evaluation-Current Subjective Patient agrees to PT. Pain Numeric Pain Scale: 0-No Pain Location: No Pain Reported Objective Patient Orientation: Normal For Age Problem Solving: Fair Attachments: IV ROM/Strength ROM Lower Extremities bilateral LE WNL Strength Lower Extremities 4-/5 grossly bilaterally Integumentary/Posture Integumentary refer to nursing notes Bowel Incontinence: No Bladder Incontinence: No Posture WFL Neuromuscular (Tone, Coordination, Reflexes) diminished coordination/proprioception with c/o dizziness. Sensory Vision: Functional Hearing: Functional Sensation Right Lower Extremit: Intact Sensation Left Lower Extremity: Intact Transfers Functional [place] Measure 0=Not Assessed/NA 4=Minimal Assistance 1=Total Assistance 5=Supervision or Setup 2=Maximal Assistance 6=Modified [place] 3=Moderate Assistance 7=Complete [place] Transfers (B, C, W/C) (FIM): 7 Scootin Rollin Supine to/from Sit: 7 Sit to/from Stand: 7 Gait Mode of Locomotion: Walk Anticipated Mode of Locomotion: Walk Gait (FIM): 5 Distance (FIM): 3=150 ft Distance: 250' Gait Level of Assist: 5 Gait Assistive Device: None Comments/Gait Description slightly unsteady with self correction/SBA for safety Balance Sitting Static: Normal Sitting Dynamic: Normal Standing Static: Fair Standing Dynamic: Fair Assessment/Needs 62 y.o. male, will be seen short term by skilled PT to address functional mobility to improve current LOF and to safely return to home at maximum LOF. Rehab Potential: Fair Post Rehab Potential-Barriers: compliance PT Short Term Goals Short Term Goals Time Frame: February 13, 2018 Transfers (B,C,W/C) (FIM): 7 Gait (FIM): 7 Distance (FIM): 3=150 ft Gait Level of Assist: 7 Gait Assistive Device: None PT Plan Problem List Problem List: Activity Tolerance, Safety, Balance, Gait Treatment/Plan Treatment Plan: Continue Plan of Care Treatment Plan: Education, Functional Activity Shine, Functional Strength, Gait , Safety, Therapeutic Exercise Treatment Duration: February 13, 2018 Frequency: 3 times per week Estimated Hrs Per Day: .25 hour per day Patient and/or Family Agrees t: Yes Safety Risks/Education Patient Education: Safety Issues Teaching Recipient: Patient Teaching Methods: Discussion Response to Teaching: Verbalize Understanding Discharge Recommendations Therapy D/C Recommendations: Home Independently Time/GCodes Time In: 1105 Time Out: 1121 Total Billed Treatment Time: 16 Total Billed Treatment 1 visit [facility] 16 min GUILHERME MATTHEWS PT February 11, 2018 11:36
[2018-02-11] MEDS ORDERED: VANCOMYCIN 1 GM/NS 250 ML IVPB IV SCH ×2 (13:00)
--- NOTE | 2018-02-11 15:22 | Occupational Therapy Eval ---
OT Evaluation-General/PLF Medical Diagnosis Admission Date February 10, 2018 at 12:01 Medical Diagnosis: sepsis, pneumonia, COPD Onset Date: February 10, 2018 Therapy Diagnosis Therapy Diagnosis: decr activity tolerance Height/Weight Height (Feet): 5 Height (Inches): 7.00 Weight (Pounds): 120 Weight (Ounces): 3.0 Precautions Precautions/Isolations: Fall Prevention, Standard Precautions Referral Physician: Stevo Referral Reason: Evaluation/Treatment Medical History Pertinent Medical History: Alcoholism, COPD, Smoking (current) Additional Medical History Multiple surgeries on toes. Chronic back pain. Pt said he needs surgery on his neck Current History Pneumonia, COPD, chronic bronchitis, hyponatremia, leukocytosis, lung mass - abscess vs cancer Reviewed History: Yes Social History Home: Single Level ("old mobile home") Current Living Status: Alone ADL-Prior Level of Function ADL PLOF Comments Pt reported that he has been able to manage all of his basic ADLs, his chores and tasks and yard work. 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 He said that he only has pain when he coughs but also mentioned that he has chronic pain in his neck and needs surgery. Appearance Alert, cooperative Mental Status/Objective Patient Orientation: Person, Place, Time, Situation Attachments: IV, Telemetry Current Glasses/Contacts: Yes (reading) Hand Dominance: Right Upper Extremity ROM Grossly WFl bilat (limited a little at L shoulder due to wires and cables) Upper Extremity Strength Grossly 4+/5 bilat ADL-Treatment ADL-Current Nursing reported and pt confirmed that he has been able to feed himself and take himself to the bathroom. He said that his biggest problem is weakness and that he couldn't carry a bag of trash across the room without needing to stop to rest. He walked over 200 feet with PT with no AD. He said he would love to get some information on how to conserve his energy Functional [place] Measure 0=Not Assessed/NA 4=Minimal Assistance 1=Total Assistance 5=Supervision or Setup 2=Maximal Assistance 6=Modified [place] 3=Moderate Assistance 7=Complete IndependenceIRFPAI Quality Coding Scale 6 Independent with activity with or without an assistive device 5 Patient requires set up or clean up by helper. Patient completes activity by themselves 4 Supervision or touching assist (CGA). [place] provide cues , steadying assist 3 The helper provides less than half the effort to complete the activity 2 The helper provides more than half the effort to complete the activity 1 Dependent. The helper does all the effort to complete an activity 7 Patient refused to complete or attempt activity 9 The patient did not perform the activity before the current illness or injury 88 Not attempted due to Medical conditions or safety concerns Eating (FIM): 6 Toileting (FIM): 6 Toilet/Commode Transfer (FIM): 6 Education OT Patient Education: Energy conservation, Purpose of tx/functional activities , Rehab process Teaching Recipient: Patient Teaching Methods: Discussion Response to Teaching: Verbalize Understanding OT Short Term Goals Short Term Goals Transfers (B,C,W/C) (FIM): 7 1=Demonstrate adherence to instructed precautions during ADL tasks. 2=Patient will verbalize/demonstrate understanding of assistive devices/ modifications for ADL. 3=Patient will improve strength/tolerance for activity to enable patient to perform ADL's. OT Power Plant Installer Goals Power Plant Installer Goals Time Frame: February 18, 2018 Pt will verbalize three ways that he can conserve energy Additional Goals: 1-Demonstrate ADL Tasks, 2-Verbalize Understanding, 3- ImproveStrength/Shine 1=Demonstrate adherence to instructed precautions during ADL tasks. 2=Patient will verbalize/demonstrate understanding of assistive devices/ modifications for ADL. 3=Patient will improve strength/tolerance for activity to enable patient to perform ADL's. OT Education/Plan Problem List/Assessment Assessment: Decreased Activ Tolerance, Impaired Self-Care Skills Pt would benefit from skilled OT to increase his activity tolerance as it affects his basic ADLs Discharge Recommendations Plan/Recommendations: Continue POC Treatment Plan/Plan of Care Treatment,Training & Education: Yes Patient would benefit from OT for education, treatment and training to promote independence in ADL's, mobility, safety and/or upper extremity function for ADL' s. Plan of Care: OTHER (edergy conservation education) Treatment Duration: February 18, 2018 Frequency: 5 times per week Estimated Hrs Per Day: .25 hour per day (.25 to .5) Agreement: Yes Rehab Potential: Fair Time/GCodes Start Time: 13:00 Stop Time: 13:20 Total Time Billed (hr/min): 20 Billed Treatment Time visit, evaluation 20 minutes low intensity LYNNE GOLDSMITH OT February 11, 2018 15:22
[2018-02-11] MEDS: ENOXAPARIN 40 MG/0.4 ML (LOVENOX) SYR SC SCH (15:25)
[2018-02-12] VITALS: BP 116/65
[2018-02-12] MEDS: RT-ALBUTEROL/IPRATROPIUM 3 ML (DUONEB) VIAL INH SCH ×6 (02:43→22:25)
[2018-02-12] MEDS: PIPERACILLIN SODIUM/TAZOBACTAM 4.5 GM in NS (IVPB) 100 ML IV SCH ×3 (02:48→18:42)
[2018-02-12 04:00] VITALS: BP 127/64
[2018-02-12] MEDS: CATHETER FLUSH 10 ML SYR IV SCH ×3 (05:25→18:42)
[2018-02-12] MEDS: predniSONE 20 MG TAB PO SCH (05:54)
[2018-02-12] MEDS: MULTIVIT W/MINERALS TAB (THERAGRAN M) PO SCH (05:55)
[2018-02-12] MEDS: THIAMINE 100 MG (VITAMIN B-1) TAB PO SCH (05:55)
[2018-02-12] MEDS: NS IV 1000 ML 1,000 ML IV SCH ×2 (05:55→09:01)
[2018-02-12] MEDS: FOLIC ACID 1 MG TAB PO SCH (08:57)
--- NOTE | 2018-02-12 10:18 | Physical Therapy Daily Note ---
PT Daily Note-Current Subjective Patient agrees to PT. Pain Numeric Pain Scale: 0-No Pain Location: No Pain Reported Mental Status Patient Orientation: Normal For Age Attachments: IV Transfers Functional [place] Measure 0=Not Assessed/NA 4=Minimal Assistance 1=Total Assistance 5=Supervision or Setup 2=Maximal Assistance 6=Modified [place] 3=Moderate Assistance 7=Complete IndependenceIRFPAI Quality Coding Scale 6 Independent with activity with or without an assistive device 5 Patient requires set up or clean up by helper. Patient completes activity by themselves 4 Supervision or touching assist (CGA). [place] provide cues , steadying assist 3 The helper provides less than half the effort to complete the activity 2 The helper provides more than half the effort to complete the activity 1 Dependent. The helper does all the effort to complete an activity 7 Patient refused to complete or attempt activity 9 The patient did not perform the activity before the current illness or injury 88 Not attempted due to Medical conditions or safety concerns Transfers (B, C, W/C) (FIM): 7 Scootin Sit to/from Stand: 7 Weight Bearing Right Lower Extremity: Right Weight Bearing/Tolerated Left Lower Extremity: Left Weight Bearing/Tolerated Gait Training Gait (FIM): 7 Distance (FIM): 3=150 ft Distance: 800' Gait Level of Assist: 7 Gait Assistive Device: None safe and functional Assessment PT to dismiss patient from services due to patient is safely independent PLOF with all gross motor skills and is safe to be up ad luciana. RN notified. PT Short Term Goals Short Term Goals Time Frame: February 13, 2018 Transfers (B,C,W/C) (FIM): 7 Gait (FIM): 7 Distance (FIM): 3=150 ft Gait Level of Assist: 7 Gait Assistive Device: None PT Plan Treatment/Plan Treatment Plan: Discontinue PT, goals met Treatment Plan: Education, Functional Activity Shine, Functional Strength, Gait , Safety, Therapeutic Exercise Treatment Duration: February 13, 2018 Frequency: 3 times per week Estimated Hrs Per Day: .25 hour per day Patient and/or Family Agrees t: Yes Time/GCodes Time In: 946 Time Out: 954 Total Billed Treatment Time: 8 Total Billed Treatment 1 visit [facility] 8 min GUILHERME MATTHEWS PT February 12, 2018 10:18
[2018-02-12 10:27] VITALS: BP 124/61
--- NOTE | 2018-02-12 10:37 | Progress Note-Hospitalist ---
Subjective HPI/CC On Admission Date Seen by Provider: February 12, 2018 Time Seen by Provider: 10:21 Pt is a 62yoCM with a PMH of COPD who was direct admitted from Dr Chapa's office for concerns of pneumonia. He was seen in Dr Chapa's office to follow up a recent pneumonia diagnosis from [facility]. He was given Azithromycin and told to follow up with Dr Chapa. He reports that he has continued cough and sputum production. He denies hemoptysis. He was also febrile intermittently but has not had fevers over the past few days. Despite this he has been coughing more and feeling more short of breath. He was sent for CT and labs from Dr Chapa's office and was found to have a significant leukocytosis of 29k so he was direct admitted for IV abx. In the office his systolic BP was 94 (DBP not available to me) so he was admitted to the ICU. Subjective/Events-last exam Pt reports doing better but still having a lot of sputum. Only complaint is that he's not getting much sleep. Focused Exam Lactate Level 02/10/18 12:41: Lactic Acid Level 1.72 Objective Exam Vital Signs Vital Signs Date Time Temp Pulse Resp B/P (MAP) Pulse Ox O2 Delivery O2 Flow Rate FiO2 02/12/18 11:11 97 Room Air 02/12/18 10:27 97.8 74 20 124/61 (82) Capillary Refill : General Appearance: No Apparent Distress, Chronically ill Respiratory: No Accessory Muscle Use, No Respiratory Distress, Rhonci Cardiovascular: Regular Rate, Rhythm, No Murmur Gastrointestinal: Normal Bowel Sounds, Non Tender, Soft Neurologic/Psychiatric: Alert, Oriented x3 Results/Procedures Lab Patient resulted labs reviewed. Imaging: Reviewed Imaging Report Assessment/Plan Assessment and Plan Assess & Plan/Chief Complaint CAP and lung abscess Diagnosis/Problems Diagnosis/Problems (1) CAP (community acquired pneumonia) Status: Acute Assessment & Plan: CT chest revealed infiltrate and finding concerns for neoplasm Vanc/Zosyn started by Dr Chapa Bronch cultures growing staph and strep Await sensitivities Will likely need long course of abx given abscess Qualifiers: Laterality: left Lung location: upper lobe of lung Qualified Codes: J18.1 - Lobar pneumonia, unspecified organism (2) COPD (chronic obstructive pulmonary disease) Status: Chronic Assessment & Plan: MAT protocol Continue prednisone Consult Pulm, appreciate assistance Continue home inhalers Qualifiers: COPD type: chronic bronchitis Chronic bronchitis type: unspecified Qualified Codes: J42 - Unspecified chronic bronchitis (3) Leukocytosis Status: Acute Assessment & Plan: On abx as above Improving Does not meet sepsis criteria currently Qualifiers: Leukocytosis type: bandemia Qualified Codes: D72.825 - Bandemia (4) Hyponatremia Assessment & Plan: Improving, 134 Appears chronic (Na 131 in 07/2016) Likely due to alcohol intake though (5) Transaminitis Assessment & Plan: Likely alcohol induced Trend (6) Thrombocytosis Assessment & Plan: Likely reactive Trend (7) Alcohol abuse Status: Chronic Assessment & Plan: drinks 8-10 beers per day CIWA assess and protocol Has never had withdrawal symptoms before even with few days abstinence Continue Thiamine (8) Prophylactic measure Assessment & Plan: Lovenox Saline lock Reg Diet Clinical Quality Measures DVT/VTE Risk/Contraindication: Risk Factor Score Per Nursin RFS Level Per Nursing on Admit: 3=High LAW CRAFT MD February 12, 2018 10:37 am
[2018-02-12] MEDS ORDERED: TROUGH ORDER-PHARMACY XX NR (12:00)
[2018-02-12 12:08] LABS: BASOPHILS % (AUTO) 0 % (0-10); EOSINOPHILS % (AUTO) 0 % (0-10); HEMATOCRIT 30 % (40-54); LYMPHOCYTES % (AUTO) 5 % (12-44); MEAN CORPUSCULAR HEMOGLOBIN 32 PG (25-34); MEAN CORPUSCULAR HGB CONC 34 G/DL (32-36); MEAN CORPUSCULAR VOLUME 96 FL (80-99); MEAN PLATELET VOLUME 9.8 FL (7.4-10.4); MONOCYTES # (AUTO) 0.6 X 10^3 (0.0-1.0); MONOCYTES % (AUTO) 3 % (0-12); NEUTROPHILS # (AUTO) 18.3 X 10^3 (1.8-7.8); NEUTROPHILS % (AUTO) 92 % (42-75); PLATELET COUNT 628 10^3/uL (130-400); RED BLOOD COUNT 3.09 10^6/uL (4.35-5.85); RED CELL DISTRIBUTION WIDTH 13.8 % (10.0-14.5); WHITE BLOOD COUNT 19.9 10^3/uL (4.3-11.0)
[2018-02-12 12:48] LABS: CARBON DIOXIDE 21 MMOL/L (21-32); CHLORIDE 104 MMOL/L (98-107); SODIUM 134 MMOL/L (135-145)
[2018-02-12 12:49] LABS: BUN/CREATININE RATIO 20; CALCIUM 8.6 MG/DL (8.5-10.1); CREATININE SERUM 0.69 MG/DL (0.60-1.30); GFR ESTIMATED > 60; GLUCOSE 119 MG/DL (70-105)
[2018-02-12] MEDS: VANCOMYCIN 1 GM/NS 250 ML IVPB IV SCH ×2 (13:51)
[2018-02-12] MEDS: ENOXAPARIN 40 MG/0.4 ML (LOVENOX) SYR SC SCH (13:51)
--- NOTE | 2018-02-12 15:25 | Occupational Ther Daily Note ---
OT Current Status-Daily Note Subjective Pt alert, sitting in recliner. Pt agreed to therapy. No c/o pain. Mental Status/Objective Patient Orientation: Person, Place, Time, Situation Functional Kinney Measure 0=Not Assessed/NA 4=Minimal Assistance 1=Total Assistance 5=Supervision or Setup 2=Maximal Assistance 6=Modified Kinney 3=Moderate Assistance 7=Complete Kinney Other Treatment Pt educated on energy conservation techniques and how to adapt daily living tasks. Pt verbalized understanding of techniques and was able to give examples of how to use during daily life. Pt given handouts for resource. After therapy , pt sitting in recliner with call light/phone in reach. All needs met in room. Education OT Patient Education: Energy conservation Teaching Recipient: Patient Teaching Methods: Handout, Discussion Response to Teaching: Verbalize Understanding OT Short Term Goals Short Term Goals Transfers (B,C,W/C) (FIM): 7 1=Demonstrate adherence to instructed precautions during ADL tasks. 2=Patient will verbalize/demonstrate understanding of assistive devices/ modifications for ADL. 3=Patient will improve strength/tolerance for activity to enable patient to perform ADL's. OT Chef French Goals Chef French Goals Time Frame: February 18, 2018 Pt will verbalize three ways that he can conserve energy Additional Goals: 1-Demonstrate ADL Tasks, 2-Verbalize Understanding, 3- ImproveStrength/Shine 1=Demonstrate adherence to instructed precautions during ADL tasks. 2=Patient will verbalize/demonstrate understanding of assistive devices/ modifications for ADL. 3=Patient will improve strength/tolerance for activity to enable patient to perform ADL's. OT Education/Plan Problem List/Assessment Pt would benefit from skilled OT to increase his activity tolerance as it affects his basic ADLs Discharge Recommendations Plan/Recommendations: Continue POC Treatment Plan/Plan of Care Patient would benefit from OT for education, treatment and training to promote independence in ADL's, mobility, safety and/or upper extremity function for ADL' s. Plan of Care: OTHER (edergy conservation education) Treatment Duration: February 18, 2018 Frequency: 5 times per week Estimated Hrs Per Day: .25 hour per day (.25 to .5) Agreement: Yes Rehab Potential: Fair Time/GCodes Start Time: 14:30 Stop Time: 14:45 Total Time Billed (hr/min): 15 Billed Treatment Time 1 visit-FA 1 (15 min) AMADO QUINTERO February 12, 2018 15:25
[2018-02-12 16:00] VITALS: BP 102/58
[2018-02-12 20:45] VITALS: BP 129/63
[2018-02-13 00:13] VITALS: BP 119/61
[2018-02-13] MEDS: VANCOMYCIN 1 GM/NS 250 ML IVPB IV SCH ×2 (01:27)
[2018-02-13] MEDS: RT-ALBUTEROL/IPRATROPIUM 3 ML (DUONEB) VIAL INH SCH ×2 (02:29→07:05)
[2018-02-13] MEDS: PIPERACILLIN SODIUM/TAZOBACTAM 4.5 GM in NS (IVPB) 100 ML IV SCH (02:54)
[2018-02-13 04:25] VITALS: BP 125/67
[2018-02-13] MEDS: CATHETER FLUSH 10 ML SYR IV SCH (06:03)
[2018-02-13] MEDS: predniSONE 20 MG TAB PO SCH (06:04)
[2018-02-13] MEDS: MULTIVIT W/MINERALS TAB (THERAGRAN M) PO SCH (06:04)
[2018-02-13] MEDS: THIAMINE 100 MG (VITAMIN B-1) TAB PO SCH (06:04)
[2018-02-13 07:05] LABS: BASOPHILS % (AUTO) 0 % (0-10); EOSINOPHILS % (AUTO) 0 % (0-10); HEMATOCRIT 30 % (40-54); HEMOGLOBIN 10.3 G/DL (13.3-17.7); LYMPHOCYTES # (AUTO) 1.6 X 10^3 (1.0-4.0); LYMPHOCYTES % (AUTO) 10 % (12-44); MEAN CORPUSCULAR HEMOGLOBIN 33 PG (25-34); MEAN CORPUSCULAR HGB CONC 35 G/DL (32-36); MEAN CORPUSCULAR VOLUME 96 FL (80-99); MEAN PLATELET VOLUME 9.9 FL (7.4-10.4); MONOCYTES # (AUTO) 1.4 X 10^3 (0.0-1.0); MONOCYTES % (AUTO) 8 % (0-12); NEUTROPHILS # (AUTO) 13.3 X 10^3 (1.8-7.8); NEUTROPHILS % (AUTO) 82 % (42-75); PLATELET COUNT 667 10^3/uL (130-400); RED BLOOD COUNT 3.12 10^6/uL (4.35-5.85); WHITE BLOOD COUNT 16.3 10^3/uL (4.3-11.0)
[2018-02-13 07:17] LABS: BUN/CREATININE RATIO 14; CALCIUM 8.4 MG/DL (8.5-10.1); CARBON DIOXIDE 23 MMOL/L (21-32); CHLORIDE 99 MMOL/L (98-107); GFR ESTIMATED > 60; GLUCOSE 83 MG/DL (70-105); SODIUM 131 MMOL/L (135-145)
[2018-02-13] MEDS ORDERED: AMOX500T2 PO (09:24)
--- NOTE | 2018-02-13 09:27 | Discharge Inst-Simple/Standard ---
Discharge Inst-Standard Discharge Medications New, Converted or Re-Newed RX: Call to Patients Pharmacy Patient Instructions/Follow Up Plan of Care/Instructions/FU: Please continue to take your medications as written. Please add a probiotic or probiotic yougurt to your diet. Activity as Tolerated: Yes Discharge Diet: No Restrictions Return to The Hospital For: SOB, worsening cough, fever, or if you feel you are getting worse. LAW CRAFT MD February 13, 2018 9:27 am
[2018-02-13] MEDS ORDERED: AMOX-358 PO (09:52)
[2018-02-13] MEDS: FOLIC ACID 1 MG TAB PO SCH (10:16)
--- NOTE | 2018-02-13 11:42 | Discharge Summary-Hospitalist ---
Diagnosis/Chief Complaint Date of Admission February 10, 2018 at 12:01 pm Date of Discharge February 13, 2018 at 10:05 am Discharge Date: February 13, 2018 Admission Diagnosis CAP Discharge Diagnosis CAP and lung abscess (1) CAP (community acquired pneumonia) Status: Acute Assessment & Plan: CT chest revealed infiltrate and finding concerns for neoplasm or abscess To be followed by Dr Chapa Transitioned to Augmentin for long course of antibiotics Bronch cultures growing staph and strep (2) COPD (chronic obstructive pulmonary disease) Status: Chronic Assessment & Plan: MAT protocol Consult Pulm, appreciate assistance Continue home inhalers (3) Leukocytosis Status: Acute Assessment & Plan: On abx as above Improving Does not meet sepsis criteria currently (4) Hyponatremia Assessment & Plan: Stable and chronic Likely due to alcohol intake though (5) Transaminitis Assessment & Plan: Likely alcohol induced Trend (6) Thrombocytosis Assessment & Plan: Likely reactive Trend (7) Alcohol abuse Status: Chronic Assessment & Plan: drinks 8-10 beers per day CIWA assess and protocol Has never had withdrawal symptoms before even with few days abstinence No evidence of withdrawal while admitted Continue Thiamine (8) Prophylactic measure Assessment & Plan: Lovenox Saline lock Reg Diet Discharge Summary Discharge Physical Exam Allergies: Coded Allergies: No Known Drug Allergies (Unverified , 08/12/16) Vitals & I&Os Vital Signs Date Time Temp Pulse Resp B/P (MAP) Pulse Ox O2 Delivery O2 Flow Rate FiO2 02/13/18 09:48 Room Air 02/13/18 07:05 95 02/13/18 04:25 100.0 84 19 125/67 (86) General Appearance: Alert, Oriented X3 Hospital Course Pt admitted to the hospital due to failed outpatient treatment of pneumonia. He was treated with vanc/zosyn and underwent bronchoscopy on 02/11. Cultures from BAL revealed MSSA and strep and he was transitioned to Augmentin per sensitivities. He is to follow up with Dr Chapa in 2 weeks. On day of discharge his symptoms had improved significantly and he was requesting DC home. He was discharged in stable condition. Labs (last 24 hrs) Laboratory Tests 02/13/18 06:15: White Blood Count 16.3H, Red Blood Count 3.12L, Hemoglobin 10.3L, Hematocrit 30L , Mean Corpuscular Volume 96, Mean Corpuscular Hemoglobin 33, Mean Corpuscular Hemoglobin Concent 35, Red Cell Distribution Width 14.0, Platelet Count 667H, Mean Platelet Volume 9.9, Neutrophils (%) (Auto) 82H, Lymphocytes (%) (Auto) 10L , Monocytes (%) (Auto) 8, Eosinophils (%) (Auto) 0, Basophils (%) (Auto) 0, Neutrophils # (Auto) 13.3H, Lymphocytes # (Auto) 1.6, Monocytes # (Auto) 1.4H, Eosinophils # (Auto) 0.0, Basophils # (Auto) 0.0, Sodium Level 131L, Potassium Level 4.0, Chloride Level 99, Carbon Dioxide Level 23, Anion Gap 9, Blood Urea Nitrogen 10, Creatinine 0.70, Estimat Glomerular Filtration Rate > 60, BUN/ Creatinine Ratio 14, Glucose Level 83, Calcium Level 8.4L Microbiology 02/10/18 Blood Culture - Preliminary, Resulted No growth 02/11/18 Mycobacterial Culture - Preliminary, Resulted Patient resulted labs reviewed. Pending Labs Imaging: Reviewed Imaging Report Discussion & Recommendations Discharge Planning: >30 minutes discharge planning Discharge Home Medications: Active Scripts Active Augmentin 875-125 Tablet (Amoxicillin/Potassium Clav) 1 Each Tablet 1 Each PO BID Reported [Theraflu] PO UD PRN [Nyquil Liquid] PO UD PRN Aleve (Naproxen Sodium) 220 Mg Tablet 440 Mg PO Q8H PRN Bevespi Aerosphere Inhaler (Glycopyrrolate/Formoterol Fum) 10.7 Gm Hfa.aer.ad 2 Puff IH BID Instructions to patient/family Please see electronic discharge instructions given to patient. Clinical Quality Measures DVT/VTE Risk/Contraindication: Risk Factor Score Per Nursin RFS Level Per Nursing on Admit: 3=High Problem Qualifiers (1) CAP (community acquired pneumonia): Laterality: left Lung location: upper lobe of lung Qualified Codes: J18.1 - Lobar pneumonia, unspecified organism (2) COPD (chronic obstructive pulmonary disease): COPD type: chronic bronchitis Chronic bronchitis type: unspecified Qualified Codes: J42 - Unspecified chronic bronchitis (3) Leukocytosis: Leukocytosis type: bandemia Qualified Codes: D72.825 - Bandemia LAW CRAFT MD February 13, 2018 11:42
[2018-02-13] MEDS ORDERED: TROUGH ORDER-PHARMACY XX NR (12:00)
== END 2018-02-13 10:05 | disposition home or self-care (01) | DRG 166 ==
LOC: RAD 10:01 → ICU 12:01 → 4TH 02-11 16:05
PROVIDERS: ADMIT Family Medicine; ATTEND Family Medicine
PROC: 0B9G8ZX Drainage of Left Upper Lung Lobe, Via Natural or Artificial Opening Endoscopic, Diagnostic (ICD-10-PCS; principal; 2018-02-11)
DX: J44.0 Chronic obstructive pulmonary disease with (acute) lower respiratory infection (principal); J18.9 Pneumonia, unspecified organism; F17.210 Nicotine dependence, cigarettes, uncomplicated; D72.829 Elevated white blood cell count, unspecified; E87.1 Hypo-osmolality and hyponatremia; D47.3 Essential (hemorrhagic) thrombocythemia; R74.0 Nonspecific elevation of levels of transaminase and lactic acid dehydrogenase [LDH]; Z66 Do not resuscitate; F10.20 Alcohol dependence, uncomplicated
CPT/HCPCS: 36415; 71045; 71275; 76705; 80048; 80053; 80202; 80320; 82150; 82785; 83605; 83690; 85007; 85025; 85027; 85610; 86003; 87040; 87070; 87077; 87101; 87116; 87186; 87205; 88112; 88305; 88312; 93306; 94640; 94760

== ENCOUNTER → 2018-02-17 | Outpatient (CLI) | payer OTHER ==
[~2018-02-17] MED LIST changes: +AMOX-358 PO; +AMOX500T2 PO; +GLYC10.7 IH; +NAPR220T66 PO; +NYQUIL LIQUID PO; +THERAFLU PO
--- NOTE | 2018-02-17 10:17 | Diagnostic Imaging Report ---
INDICATION: Pneumonia. Lung mass. COMPARISON: 02/11/2018. FINDINGS: Frontal and lateral radiographic views of the chest are obtained. There has been overall improved aeration of the left upper lobe. Cavitary lesion with air-fluid levels again identified and measures 4.3 x 4.1 cm. Right lung is relatively clear. No large effusion or pneumothorax is seen on either side. Cardiac silhouette and pulmonary vasculature within normal limits. Bony structures show no gross acute abnormalities. IMPRESSION: Interval improved aeration of the left upper lobe, but with persistent pneumonia type infiltrates and cavitary lesion with air-fluid level as described above. Dictated by: Dictated on workstation # [id number]
== END ==
LOC: RAD 09:51
PROVIDERS: ATTEND Nurse Practitioner Family
DX: J18.9 Pneumonia, unspecified organism (principal); R91.8 Other nonspecific abnormal finding of lung field
CPT/HCPCS: 71046

== ENCOUNTER → 2018-03-03 | Outpatient (CLI) | payer OTHER ==
--- NOTE | 2018-03-03 09:35 | Diagnostic Imaging Report ---
INDICATION: Pneumonia. Comparison made with prior examination from 02/17/2018. FINDINGS: There is a persistent small cavitary lesion in the left lung apex with an air-fluid level. The heart size is normal. There is no pleural effusion or pneumothorax. The mediastinum is unremarkable. IMPRESSION: Persistent infiltrate and cavitary lesion left upper lobe which appears slightly smaller compared with prior examination. There is a persistent air-fluid level within it. This remains suspect for pneumonia although neoplasm cannot be entirely excluded. Dictated by: Dictated on workstation # [id number]
[2018-03-03 09:46] LABS: BASOPHILS % (AUTO) 0 % (0-10); EOSINOPHILS # (AUTO) 0.3 10^3/uL (0.0-0.3); EOSINOPHILS % (AUTO) 4 % (0-10); HEMATOCRIT 37 % (40-54); HEMOGLOBIN 12.4 G/DL (13.3-17.7); LYMPHOCYTES # (AUTO) 1.5 X 10^3 (1.0-4.0); LYMPHOCYTES % (AUTO) 23 % (12-44); MEAN CORPUSCULAR HEMOGLOBIN 33 PG (25-34); MEAN CORPUSCULAR HGB CONC 34 G/DL (32-36); MEAN CORPUSCULAR VOLUME 97 FL (80-99); MEAN PLATELET VOLUME 9.4 FL (7.4-10.4); MONOCYTES # (AUTO) 0.6 X 10^3 (0.0-1.0); MONOCYTES % (AUTO) 9 % (0-12); NEUTROPHILS # (AUTO) 4.3 X 10^3 (1.8-7.8); NEUTROPHILS % (AUTO) 64 % (42-75); PLATELET COUNT 372 10^3/uL (130-400); RED BLOOD COUNT 3.81 10^6/uL (4.35-5.85); RED CELL DISTRIBUTION WIDTH 17.1 % (10.0-14.5); WHITE BLOOD COUNT 6.8 10^3/uL (4.3-11.0)
== END ==
LOC: RAD 08:31
PROVIDERS: ATTEND Nurse Practitioner Family
DX: J18.9 Pneumonia, unspecified organism (principal); R91.8 Other nonspecific abnormal finding of lung field
CPT/HCPCS: 36415; 71046; 85025

== ENCOUNTER → 2018-06-01 | Outpatient (CLI) | payer OTHER ==
[~2018-06-01] MED LIST changes: -CODE118S2 PO; +CODE118S4 PO
--- NOTE | 2018-06-01 10:55 | Diagnostic Imaging Report ---
PROCEDURE: CT chest without contrast. TECHNIQUE: Multiple contiguous axial images were obtained through the chest without the use of intravenous contrast. INDICATION: COPD and shortness of air with left lung mass. The study is performed for followup. Correlation is made with prior CT from 02/10/2018. No axillary lymphadenopathy is detected. Hilar and mediastinal evaluation is limited without intravenous contrast but no gross abnormality is seen. There are calcified lymph nodes in the subcarinal and right hilar regions consistent with prior granulomatous exposure. Coronary arterial calcifications are present. No pericardial or pleural fluid is identified. Significant improved appearance to the left upper lobe is noted since CT from February 2018. There continue to be some air cysts in the left upper lobe but no fluid or large cavitary mass is seen on today's study. In addition the extensive infiltrate throughout the left upper lobe has largely cleared. There are some mild residual densities present. Slightly nodular density along the major fissure in the left apex is seen measuring approximately 18 mm x 8 mm. There is also some nodularity adjacent to the fissure in the superior segment left upper lobe slightly more inferior to this level measuring 10 mm in size. This, however, has improved since prior CT where there was some cavitation and more consolidation. Linear parenchymal densities are noted likely owing to some subsegmental atelectasis or scarring. The remainder of the lung aquino appear clear. Upper abdomen is unremarkable. IMPRESSION: There has been significant improved appearance to the left upper lobe and left lower lobe when compared with prior CT from 02/10/2018. There are some mild residual nodular densities present, likely residual infiltrate. Continued close followup with repeat CT chest in another three months is recommended to show continued improvement in stability. Dictated by: Dictated on workstation # [id number]
== END ==
LOC: RAD 09:40
PROVIDERS: ATTEND Nurse Practitioner Family
DX: J44.9 Chronic obstructive pulmonary disease, unspecified (principal); R91.8 Other nonspecific abnormal finding of lung field; Z72.0 Tobacco use
CPT/HCPCS: 71250

== ENCOUNTER → 2018-11-16 | Outpatient (CLI) | payer MEDICARE ==
--- NOTE | 2018-11-16 09:42 | Diagnostic Imaging Report ---
PROCEDURE: CT chest without contrast. TECHNIQUE: Multiple contiguous axial images were obtained through the chest without the use of intravenous contrast. INDICATION: History of smoking. Followup pulmonary nodules. COMPARISON: 06/01/2018. FINDINGS: Again identified are multiple spiculated nodular densities within the left upper lobe. 1.8 x 1 cm nodular density is stable compared to 1 x 1.8 cm previously (image 18, series 2). Cystic-appearing lesions are also identified within the left apex. There has been interval resorption of cystic lesion within the far superior apex. There is some residual adjacent spiculated nodular density that measures 1.7 x 1 cm. Given interval changes, this appears to be largely stable compared to 1.7 x 0.8 cm previously. Calcified granulomas also noted within the subpleural margins of lateral segment of right middle lobe. No new suspicious pulmonary nodules or masses are identified. There is background of emphysematous disease. There is no focal consolidation, large effusion, nor pneumothorax. Cardiomediastinal structures show normal heart size. There is no large pericardial effusion. There is [id number] calcified coronary atherosclerosis. Mild calcified aortic atherosclerosis is also noted. Benign-appearing calcified right hilar and subcarinal lymph nodes are noted. No pathologically enlarged or morphologically abnormal adenopathy is seen within the mediastinum, lou, nor axilla. Bony structures show no acute abnormalities. Included portions of the upper abdomen are unremarkable. IMPRESSION: 1. Multiple stable spiculated nodular densities within the left upper lobe. 2. No new suspicious pulmonary nodule, mass, or other adverse interval change. Six-month followup is recommended to ensure stability. 3. Background emphysematous disease. 3. Calcified aortic and coronary atherosclerosis as described above. Dictated by: Dictated on workstation # [id number]
== END ==
LOC: RAD 08:41
PROVIDERS: ATTEND Internal Medicine Critical Care Medicine
DX: J43.9 Emphysema, unspecified (principal); R91.8 Other nonspecific abnormal finding of lung field; I70.0 Atherosclerosis of aorta; I25.10 Atherosclerotic heart disease of native coronary artery without angina pectoris; Z87.891 Personal history of nicotine dependence
CPT/HCPCS: 71250

== ENCOUNTER → 2019-02-15 | Outpatient (CLI) | payer MEDICARE ==
[~2019-02-15] MED LIST changes: +CATHETER FLUSH 10 ML SYR IV PRN; +HOLD METFORMIN - RECEIVED CONTRAST 20 ML VIAL IV SCH; +IOHEXOL 350 MG/ML 100 ML (OMNIPAQUE 350) VIAL IV ONE; +NS 100 ML (IVPB) BAG IV ONE
[2019-02-15 09:25] LABS: BUN/CREATININE RATIO 9; CREATININE SERUM 0.99 MG/DL (0.60-1.30); GFR ESTIMATED > 60
--- NOTE | 2019-02-15 10:24 | Diagnostic Imaging Report ---
PROCEDURE: CT chest with contrast only. TECHNIQUE: Multiple contiguous axial images were obtained through the chest after administration of intravenous contrast. Auto Exposure Controls were utilized during the CT exam to meet ALARA standards for radiation dose reduction. INDICATION: COPD, cough, dyspnea. History of lung mass. COMPARISON: 11/16/2018 FINDINGS: Portion of the thyroid gland unremarkable. No suggestion of pathologically enlarged mediastinal and/or hilar lymph nodes. Calcified subcarinal lymph node. Heart size normal. There is at least moderate severity coronary artery calcification. Thoracic aorta normal in contour with mild atheromatous changes. Gastroesophageal junction appearing relatively unremarkable. A few shoddy axillary lymph nodes. Advanced emphysematous changes about the lung parenchyma. Scattered bullous changes. Multifocal abnormalities about the left upper lung field again demonstrated. Consolidated spiculated density of the apex measures approximately 16 x 10 mm (image 15 series 3), generally stable. Additional consolidated spiculated density at the left upper lung field measures 16 x 10 mm as well (image 25 series 3), largely unchanged. Additional areas of scar-like formation about the left mid upper lung field unchanged. Calcified granuloma of the right middle lobe. Atherosclerotic change about the abdominal aorta. Gallbladder appears significantly contracted. Advanced degenerative changes with accentuated thoracic kyphosis. Mildly compressed and loss of height of lower thoracic vertebral bodies. IMPRESSION: Generally stable appearance about the spiculated nodular density at the left lung apex. Additional followup imaging in 6 months would be recommended. If findings would clinically alter treatment plan, PET/CT imaging may be of additional benefit as well. Dictated by: Dictated on workstation # [id number]
== END ==
LOC: RAD FS 08:47
PROVIDERS: ATTEND Nurse Practitioner Family
DX: J44.9 Chronic obstructive pulmonary disease, unspecified (principal); R91.8 Other nonspecific abnormal finding of lung field; R06.00 Dyspnea, unspecified; Z72.0 Tobacco use
CPT/HCPCS: 36415; 71260; 82565; 84520

== ENCOUNTER → 2019-03-09 | Outpatient (CLI) | payer MEDICARE ==
[~2019-03-09] MED LIST changes: -CATHETER FLUSH 10 ML SYR IV PRN; -HOLD METFORMIN - RECEIVED CONTRAST 20 ML VIAL IV SCH; -IOHEXOL 350 MG/ML 100 ML (OMNIPAQUE 350) VIAL IV ONE; -NS 100 ML (IVPB) BAG IV ONE
--- NOTE | 2019-03-09 13:55 | Diagnostic Imaging Report ---
INDICATION: Left upper lobe lung mass. TECHNIQUE: The serum blood glucose level at the time of injection was 95 mg/dL. The patient was administered 13.3 mCi of F18 FDG intravenously and PET imaging from the top of the skull to the mid thighs was performed. Noncontrast CT was also performed for attenuation correction and anatomic correlation. COMPARISON: Correlation is made with the prior CT chest from 02/15/2019. No prior PET study is available for comparison. FINDINGS: There is symmetric activity throughout the brain. No suspicious activity within the soft tissues of the neck is identified. Imaging of the chest is unremarkable. Specifically, no hypermetabolism involving the spiculated nodule in the left upper lobe is identified. The remainder of the pulmonary parenchyma is without hypermetabolism. No hilar or mediastinal hypermetabolic foci are identified. The abdomen and pelvis demonstrate physiologic activity within the GI and tracts. IMPRESSION: Unremarkable PET/CT study. Specifically, no suspicious hypermetabolism involving the spiculated nodule in the left apex is identified. Continued CT followup is recommended to confirm stability. Dictated by: Dictated on workstation # [id number]
== END ==
LOC: RAD 08:24
PROVIDERS: ATTEND Internal Medicine Critical Care Medicine
DX: J44.9 Chronic obstructive pulmonary disease, unspecified (principal); R91.8 Other nonspecific abnormal finding of lung field; Z72.0 Tobacco use

== ENCOUNTER → 2019-08-23 | Outpatient (CLI) | payer MEDICARE ==
--- NOTE | 2019-08-23 09:15 | Diagnostic Imaging Report ---
EXAMINATION: CT Chest without contrast. TECHNIQUE: Multiple contiguous axial images were obtained through the chest without the use of intravenous contrast. All CT scans use one or more of the following dose optimizing techniques: automated exposure control, MA and/or KvP adjustment based on a patient size and exam type, or iterative reconstruction. HISTORY: Lung nodule. COMPARISON: 02/15/2019. FINDINGS: Soft tissue nodular focus in the left apex appears similar to previous exam with the most discrete area measuring 11 x 7 mm, previously 12 x 8 mm. On 02/10/2018, there was a severe pneumonia involving this area. This abnormality is longer in Z axis and has concave borders with no infiltration of the extrapleural fat. Given all these findings, this can be considered as a benign area of scarring. A second similar area is seen more inferiorly as well as an area of cavitation more inferiorly in the left upper lobe. All of these are consistent with sequela of prior severe pneumonia. Lungs are mildly emphysematous. No pleural effusion or pneumothorax. Heart size is normal. No pericardial effusion. Aorta is normal in caliber. There is no axillary or supraclavicular lymphadenopathy. There is no mediastinal lymphadenopathy. There are moderate coronary artery calcifications. Calcified mediastinal lymph nodes are present. Limited views of the upper abdomen are unremarkable. There are no suspicious osseus lesions. IMPRESSION: 1. Stable scarring in the left apex, this can be considered benign with no further follow-up necessary. Dictated by: Dictated on workstation # [id number]
== END ==
LOC: RAD FS 08:34
PROVIDERS: ATTEND Nurse Practitioner Family
DX: J44.9 Chronic obstructive pulmonary disease, unspecified (principal); J98.4 Other disorders of lung; R91.8 Other nonspecific abnormal finding of lung field; Z72.0 Tobacco use
CPT/HCPCS: 71250

== ENCOUNTER → 2020-08-24 | Outpatient (CLI) | payer MEDICARE ==
--- NOTE | 2020-08-24 12:14 | Diagnostic Imaging Report ---
CT CHEST SCREENING WO TECHNIQUE: Low-dose unenhanced CT of the chest was performed according to the screening protocol. Coronal MIP and sagittal MPR reformats are created. Automatic exposure controls were utilized to keep dose as low as reasonably achievable. INDICATION: 60 pack year history of smoking. COMPARISON: CT chest of 08/23/2019 FINDINGS: Pulmonary findings: No endoluminal nodule within the trachea. Chronic architectural distortion and scarring in the left upper lung is unchanged. This includes some spiculated nodular scarring is stable. Calcified right middle lobe pulmonary nodule stable. No new pulmonary nodule, mass or consolidation. Extrapulmonary findings: No axillary lymphadenopathy or pleural effusion. No mediastinal, hilar or juxtaphrenic lymphadenopathy. Calcified mediastinal and hilar lymph nodes are due to old granulomatous infection. Normal heart size without pericardial effusion. Unchanged coronary artery calcifications. Normal caliber thoracic aorta. No worrisome focal osseous lesions. IMPRESSION: 1. No change to indicate clinically active lung cancer. Lung-RADS category: 2 - Benign appearance or behavior Recommendations: Continued annual screening with low-dose CT in 12 months. Dictated by: Dictated on workstation # [id number]
== END ==
LOC: RAD 10:04
PROVIDERS: ATTEND Nurse Practitioner Family
DX: Z12.2 Encounter for screening for malignant neoplasm of respiratory organs (principal); Z72.0 Tobacco use

== ENCOUNTER → 2021-06-21 | Outpatient (CLI) | payer MEDICARE ==
--- NOTE | 2021-06-21 16:23 | Diagnostic Imaging Report ---
INDICATION: COPD, follow-up. COMPARISON: 03/03/2018. FINDINGS: There is some faint linear scarring at the site of previous abnormal density on prior chest x-ray. An acute abnormality or adverse development is not identified. There is no failure, effusion, or pneumothorax. Air trapping and COPD are chronic. IMPRESSION: Some mild left upper lobe scarring at the site of previous lesion. No adverse development or acute appearing pathology. Dictated by: Dictated on workstation # [id number]
[2021-06-21 16:38] LABS: HEMATOCRIT 42 % (40-54); HEMOGLOBIN 14.6 g/dL (13.3-17.7); MEAN CORPUSCULAR HEMOGLOBIN 34 pg (25-34); MEAN CORPUSCULAR HGB CONC 35 g/dL (32-36); MEAN CORPUSCULAR VOLUME 97 fL (80-99); MEAN PLATELET VOLUME 10.1 fL (9.0-12.2); PLATELET COUNT 241 10^3/uL (130-400); WHITE BLOOD COUNT 6.6 10^3/uL (4.3-11.0)
[2021-06-21 16:39] LABS: BASOPHILS % (AUTO) 1 % (0-10); EOSINOPHILS # (AUTO) 0.3 10^3/uL (0.0-0.3); EOSINOPHILS % (AUTO) 5 % (0-10); LYMPHOCYTES # (AUTO) 2.2 X 10^3 (1.0-4.0); LYMPHOCYTES % (AUTO) 33 % (12-44); MONOCYTES # (AUTO) 0.8 X 10^3 (0.0-1.0); MONOCYTES % (AUTO) 12 % (0-12); NEUTROPHILS # (AUTO) 3.2 X 10^3 (1.8-7.8); NEUTROPHILS % (AUTO) 49 % (42-75)
== END ==
LOC: RAD FS 15:45
PROVIDERS: ATTEND Nurse Practitioner Family
DX: J44.9 Chronic obstructive pulmonary disease, unspecified (principal)
CPT/HCPCS: 36415; 71046; 85025

== ENCOUNTER → 2021-06-28 | Outpatient (CLI) | payer MEDICARE ==
[~2021-06-28] MED LIST changes: +RT-ALBUTEROL SULF 2.5 MG/3 ML PRE-MIX VIAL INH ONE
--- NOTE | 2021-06-28 13:46 | Diagnostic Imaging Report ---
EXAMINATION: CT chest without contrast. TECHNIQUE: Multiple contiguous axial images were obtained through the chest without the use of intravenous contrast. All CT scans use one or more of the following dose optimizing techniques: automated exposure control, MA and/or KvP adjustment based on patient size and exam type or iterative reconstruction. HISTORY: Shortness of breath, COPD COMPARISON: 08/24/2020 FINDINGS: There is no edema or pneumonia. No pleural effusion. No pneumothorax. Mild scarring in the left upper lobe. Lungs are mildly emphysematous. There is no axillary or supraclavicular lymphadenopathy. There is no mediastinal lymphadenopathy. Heart size is normal. There are severe coronary artery calcifications. No pericardial effusion. Aorta is normal in caliber. Limited views of the upper abdomen show mildly dilated pancreatic duct and what appears to be pancreas divisum. There are no suspicious osseus lesions. IMPRESSION: 1. . Mild scarring in the lungs, unchanged no suspicious nodules 2. Likely pancreas divisum with mildly dilated pancreatic duct. Dictated by: Dictated on workstation # [id number]
== END ==
LOC: RAD 10:15
PROVIDERS: ATTEND Nurse Practitioner Family
DX: J44.9 Chronic obstructive pulmonary disease, unspecified (principal); K86.89 Other specified diseases of pancreas
CPT/HCPCS: 71250; 94060; 94726; 94729

== ENCOUNTER → 2022-03-04 | Outpatient (CLI) | payer MEDICARE ==
[~2022-03-04] MED LIST changes: -LEVO500T80 PO; +LEVO500T81 PO; -RT-ALBUTEROL SULF 2.5 MG/3 ML PRE-MIX VIAL INH ONE
--- NOTE | 2022-03-04 15:28 | Diagnostic Imaging Report ---
PROCEDURE: MRI lumbar spine. TECHNIQUE: Multiplanar, multisequence MRI of the lumbar spine was performed without contrast. DATE: March 04, 2022. COMPARISON: None. INDICATION: 66-year-old male, chronic low back pain. FINDINGS: There is a lumbar levocurvature. The marrow signal is diffusely patchy which is nonspecific. This can be seen with bone demineralization. There is an acute compression type fracture of the L1 vertebral body with visible fracture line and associated marrow edema. There is an approximately 15% height loss. There is no sizable retropulsed fracture fragment. There is no fracture involvement of the posterior elements. There is a superior endplate concavity of L2 without fracture line or marrow edema The visualized cord and conus medullaris is unremarkable and terminates at the L1-L2 level. There is mild disc loss at L1-L2 and L2-L3. There is severe disc height loss at L3-L4. There is moderate disc height loss at L4-L5 and L5-S1. There are endplate degenerative changes of the thoracolumbar spine. There is a small posterior disc protrusion at T10-T11 with mild bilateral foraminal narrowing and mild spinal stenosis. L1-L2: There is diffuse disc bulge. The facet joints and ligamentum flavum are unremarkable. There is mild bilateral foraminal narrowing. There is mild spinal canal stenosis. L2-L3: There is diffuse disc bulge. There is mild narrowing of bilateral lateral recesses. The facet joints and ligamentum flavum are unremarkable. There is mild to moderate bilateral foraminal narrowing. There is mild spinal canal stenosis. L3-L4: There is diffuse disc bulge. There is moderate narrowing of the right lateral recess. There are mild right facet degenerative changes. There is severe right and mild left foraminal narrowing. There is mild spinal canal stenosis. L4-L5: There is diffuse disc bulge. There is moderate narrowing of the right lateral recess. There are mild right facet degenerative changes. There is severe bilateral foraminal narrowing. There is no high-grade spinal canal stenosis. L5-S1: There is diffuse disc bulge. There is mild narrowing of the left lateral recess. The facet joints and ligamentum flavum are unremarkable. There is moderate to severe left foraminal narrowing. There is no high-grade spinal canal stenosis. IMPRESSION: 1. Acute compression fracture of L1 with 15% height loss and no retropulsed fracture fragment. 2. Diffusely heterogeneous marrow signal which is nonspecific although can be seen with bone demineralization. 3. Multilevel disc and facet degenerative changes of the thoracolumbar spine as described in detail level by level above. Dictated by: Dictated on workstation # [id number]
== END ==
LOC: RAD 13:15
PROVIDERS: ATTEND Orthopaedic Surgery Orthopaedic Surgery of the Spine
DX: M51.35 Other intervertebral disc degeneration, thoracolumbar region (principal); M47.815 Spondylosis without myelopathy or radiculopathy, thoracolumbar region; M48.56XA Collapsed vertebra, not elsewhere classified, lumbar region, initial encounter for fracture; M48.07 Spinal stenosis, lumbosacral region; M51.27 Other intervertebral disc displacement, lumbosacral region; M48.05 Spinal stenosis, thoracolumbar region
CPT/HCPCS: 72148

== ENCOUNTER 2022-10-28 08:13 | Emergency (ER) | payer MEDICARE ==
[~2022-10-28] VITALS: Ht 170.1 cm; Wt 57.5 kg
[~2022-10-28 08:13] MED LIST changes: +ALBU8.5H6 IH; +LEVO-55 PO; -LEVO500T81 PO; -RT-ALBUINH IH
[2022-10-28 08:18] VITALS: BP 118/72
--- NOTE | 2022-10-28 08:19 | ED Cough/URI ---
General Chief Complaint: Cough/Cold/Flu Symptoms Stated Complaint: COUGH History of Present Illness Date Seen by Provider: Oct 28, 2022 Time Seen by Provider: 08:19 Initial Comments 66-year-old male presents with cough congestion runny nose generalized malaise. He reports is been going on for about 10 days. Patient reports he is just tired of it. He denies any shortness of breath. No nausea or vomiting. No reports of fever. Allergies and Home Medications Allergies Coded Allergies: No Known Drug Allergies (Unverified , 08/12/16) Patient Home Medication List Home Medication List Reviewed: Yes Amoxicillin/Potassium Clav (Augmentin 875-125 Tablet) 1 Each Tablet, 1 EACH PO BID Prescribed by: LAW CRAFT on 02/13/18 0952 Glycopyrrolate/Formoterol Fum (Bevespi Aerosphere Inhaler) 10.7 Gm Hfa.aer.ad, 2 PUFF IH BID, (Reported) Entered as Reported by: VALENTIN NICOLAS on 02/10/18 1310 Naproxen Sodium (Aleve) 220 Mg Tablet, 440 MG PO Q8H PRN for PAIN-MILD, (Reported) Entered as Reported by: VALENTIN NICOLAS on 02/10/18 131 [Nyquil Liquid] , PO UD PRN for COUGH/COLD, (Reported) Entered as Reported by: VALENTIN NICOLAS on 02/10/18 1310 [Theraflu] , PO UD PRN for COUGH/COLD, (Reported) Entered as Reported by: VALENTIN NICOLAS on 02/10/181309 Review of Systems Review of Systems Constitutional: No chills, No dizziness, No fever; malaise EENTM: nose congestion Respiratory: cough; No short of breath Cardiovascular: No chest pain, No palpitations Gastrointestinal: No abdominal pain, No nausea, No vomiting Genitourinary: no symptoms reported Musculoskeletal: no symptoms reported Skin: no symptoms reported Past Npabfra-Bqcbxx-Pitaye Hx Immunizations Up To Date Tetanus Booster (TDap): Unknown Seasonal Allergies Seasonal Allergies: No Past Medical History Surgeries: Yes (EYE SURGERY, TOE SURGERY, WARTS REMOVED) Eye Surgery, Orthopedic Respiratory: Yes (LUNG MASS) Pneumonia, COPD Currently Using CPAP: No Currently Using BIPAP: No Cardiac: No Neurological: No Reproductive Disorders: No Sexually Transmitted Disease: No HIV/AIDS: No Genitourinary: No Gastrointestinal: No Musculoskeletal: Yes Arthritis, Chronic Back Pain Endocrine: No HEENT: No Loss of Vision: Denies Hearing Impairment: Denies Cancer: No Psychosocial: No Integumentary: No Blood Disorders: No Adverse Reaction/Blood Tranf: No (N/A) Family Medical History No Pertinent Family Hx Physical Exam Vital Signs - First Documented 10/28/22 08:18 Temp 36.9 Pulse 87 B/P (MAP) 118/72 (87) Pulse Ox 100 O2 Delivery Room Air Capillary Refill : Height: 5'7.00" Weight: 120lbs. 3.0oz. 54.628707cn; 18.8 BMI Method: General Appearance: WD/WN, no apparent distress HEENT: other (Rhinorrhea) Respiratory: lungs clear, normal breath sounds Cardiovascular: normal peripheral pulses, regular rate, rhythm Gastrointestinal: non tender, soft Extremities: non-tender, normal inspection Neurologic/Psychiatric: alert, normal mood/affect, oriented x 3 Skin: normal color, warm/dry Progress/Results/Core Measures Suspected Sepsis SIRS Temperature: Pulse: Respiratory Rate: Laboratory Tests 10/28/22 08:36: White Blood Count 10.9 Blood Pressure / Mean: Laboratory Tests 10/28/22 08:36: Creatinine 0.79, Platelet Count 526H Results/Orders Lab Results Laboratory Tests Test 10/28/22 08:36 Range/Units White Blood Count 10.9 4.3-11.0 10^3/uL Red Blood Count 3.95 L 4.30-5.52 10^6/uL Hemoglobin 13.3 13.3-17.7 g/dL Hematocrit 37 L 40-54 % Mean Corpuscular Volume 93 80-99 fL Mean Corpuscular Hemoglobin 34 25-34 pg Mean Corpuscular Hemoglobin Concent 36 32-36 g/dL Red Cell Distribution Width 12.9 10.0-14.5 % Platelet Count 526 H 130-400 10^3/uL Mean Platelet Volume 9.8 9.0-12.2 fL Immature Granulocyte % (Auto) 2 % Neutrophils (%) (Auto) 78 H 42-75 % Lymphocytes (%) (Auto) 11 L 12-44 % Monocytes (%) (Auto) 8 0-12 % Eosinophils (%) (Auto) 0 0-10 % Basophils (%) (Auto) 0 0-10 % Neutrophils # (Auto) 8.6 H 1.8-7.8 10^3/uL Lymphocytes # (Auto) 1.2 1.0-4.0 10^3/uL Monocytes # (Auto) 0.9 0.0-1.0 10^3/uL Eosinophils # (Auto) 0.0 0.0-0.3 10^3/uL Basophils # (Auto) 0.0 0.0-0.1 10^3/uL Immature Granulocyte # (Auto) 0.2 H 0.0-0.1 10^3/uL Sodium Level 128 L 135-145 MMOL/L Potassium Level 3.4 L 3.6-5.0 MMOL/L Chloride Level 92 L 98-107 MMOL/L Carbon Dioxide Level 24 21-32 MMOL/L Anion Gap 12 5-14 MMOL/L Blood Urea Nitrogen 8 7-18 MG/DL Creatinine 0.79 0.60-1.30 MG/DL Estimat Glomerular Filtration Rate 97 BUN/Creatinine Ratio 10 Glucose Level 102 70-105 MG/DL Calcium Level 8.9 8.5-10.1 MG/DL My Orders Orders - FRYE,DUSTIN L DO Chest Pa/Lat (2 View) (10/28/22 08:30) Basic Metabolic Panel (10/28/22 08:30) Cbc With Automated Diff (10/28/22 08:30) Vital Signs/I&O 10/28/22 08:18 Temp 36.9 Pulse 87 B/P (MAP) 118/72 (87) Pulse Ox 100 O2 Delivery Room Air Capillary Refill : Progress Note : Progress Note Patient's labs and x-rays were reviewed. Patient's labs shows low sodium 128 which he reports he has a history of low sodium. Patient does not show a significant white count. He is x-ray does show a lingula pneumonia. I will treat him for an atypical pneumonia using azithromycin. Patient was recommended to follow-up with a primary care provider in about 10 to 14 days for repeat x- ray to ensure clearing. He should follow-up sooner if symptoms or not improving. Patient was stable and discharged Diagnostic Imaging Diagonstic Imaging: Xray Plain Films/CT/US/NM/MRI: chest Comments Date of Exam:10/28/22 CHEST PA/LAT (2 VIEW) INDICATION: Cough. COMPARISON: 06/28/2021. TECHNIQUE: Frontal and lateral radiographs of the chest dated 10/28/2022. FINDINGS: The cardiac silhouette is within normal limits in size. No significant pulmonary vascular congestion. Calcified granuloma within the right midlung. Interval development of focal airspace opacity, predominantly within the lingula. Nodular densities within the left upper lung have not significantly changed since the prior exam. No significant pleural effusion. No pneumothorax. Scattered osseous degenerative changes without acute osseous abnormality. Background pulmonary hyperinflation is again noted. IMPRESSION: New lingular opacity is favored to relate to lingular pneumonia. Recommend radiographic followup 10-14 days after appropriate therapy to ensure resolution. Mild background emphysematous changes and chronic obstructive pulmonary disease with stable appearing nodular densities overlying the left upper lung. Reviewed: Reviewed by Me, Reviewed/Discussed Departure Impression Primary Impression: Pneumonia Qualified Codes: J18.9 - Pneumonia, unspecified organism Additional Impression: Hyponatremia Disposition: HOME, SELF-CARE Condition: Stable Departure-Patient Inst. Referrals: NO,LOCAL PHYSICIAN (PCP/Family) Primary Care Physician Patient Instructions: Pneumonia, Adult ED, Atypical Pneumonia (Mycoplasma and Viral) (DC), Hyponatremia (DC) Add. Discharge Instructions: Please follow-up and establish primary care provider for recheck of your x-ray in approximately 10 to 14 days. Please take antibiotics as prescribed. All discharge instructions reviewed with patient and/or family. Voiced understanding. Scripts Azithromycin (Azithromycin) 250 Mg Tablet 250 MG PO UD, #6 TAB TAKE 2 TABLETS ON DAY ONE THEN TAKE 1 TABLET DAILY FOR FOUR MORE DAYS Prov: DUSTIN FRYE DO 10/28/22 DUSTIN FRYE DO Oct 28, 2022 08:19
[2022-10-28 08:51] LABS: BASOPHILS % (AUTO) 0 % (0-10); EOSINOPHILS % (AUTO) 0 % (0-10); HEMATOCRIT 37 % (40-54); HEMOGLOBIN 13.3 g/dL (13.3-17.7); LYMPHOCYTES # (AUTO) 1.2 10^3/uL (1.0-4.0); LYMPHOCYTES % (AUTO) 11 % (12-44); MEAN CORPUSCULAR HEMOGLOBIN 34 pg (25-34); MEAN CORPUSCULAR HGB CONC 36 g/dL (32-36); MEAN CORPUSCULAR VOLUME 93 fL (80-99); MEAN PLATELET VOLUME 9.8 fL (9.0-12.2); MONOCYTES # (AUTO) 0.9 10^3/uL (0.0-1.0); MONOCYTES % (AUTO) 8 % (0-12); NEUTROPHILS # (AUTO) 8.6 10^3/uL (1.8-7.8); NEUTROPHILS % (AUTO) 78 % (42-75); PLATELET COUNT 526 10^3/uL (130-400); WHITE BLOOD COUNT 10.9 10^3/uL (4.3-11.0)
--- NOTE | 2022-10-28 09:05 | Diagnostic Imaging Report ---
INDICATION: Cough. COMPARISON: 06/28/2021. TECHNIQUE: Frontal and lateral radiographs of the chest dated 10/28/2022. FINDINGS: The cardiac silhouette is within normal limits in size. No significant pulmonary vascular congestion. Calcified granuloma within the right midlung. Interval development of focal airspace opacity, predominantly within the lingula. Nodular densities within the left upper lung have not significantly changed since the prior exam. No significant pleural effusion. No pneumothorax. Scattered osseous degenerative changes without acute osseous abnormality. Background pulmonary hyperinflation is again noted. IMPRESSION: New lingular opacity is favored to relate to lingular pneumonia. Recommend radiographic followup 10-14 days after appropriate therapy to ensure resolution. Mild background emphysematous changes and chronic obstructive pulmonary disease with stable appearing nodular densities overlying the left upper lung. Additional findings as above. Dictated by: Dictated on workstation # [id number]
[2022-10-28 09:12] LABS: POTASSIUM 3.4 MMOL/L (3.6-5.0)
[2022-10-28 09:13] LABS: CALCIUM 8.9 MG/DL (8.5-10.1); CREATININE SERUM 0.79 MG/DL (0.60-1.30)
[2022-10-28] MEDS ORDERED: AZIT250T12 PO (09:27)
== END 2022-10-28 09:28 | disposition home or self-care (01) ==
LOC: EDUNIT# 08:13 → ER FS 08:15
DX: J18.9 Pneumonia, unspecified organism (principal); E87.1 Hypo-osmolality and hyponatremia
CPT/HCPCS: 36415; 71046; 80048; 85025

== ENCOUNTER → 2022-11-22 | Outpatient (CLI) | payer MEDICARE ==
[~2022-11-22] MED LIST changes: +AZIT250T12 PO; +HOLD METFORMIN - RECEIVED CONTRAST 20 ML VIAL IV SCH; +IOHEXOL 350 MG/ML 100 ML (OMNIPAQUE 350) VIAL IV ONE; +NS 100 ML (IVPB) BAG IV ONE
[2022-11-22] MEDS: CATHETER FLUSH 10 ML SYR IV PRN ×2 (11:53→11:56)
--- NOTE | 2022-11-22 12:42 | Diagnostic Imaging Report ---
PROCEDURE: CT chest with contrast only. TECHNIQUE: Multiple contiguous axial images were obtained through the chest after administration of intravenous contrast. Auto Exposure Controls were utilized during the CT exam to meet ALARA standards for radiation dose reduction. INDICATION: Chronic COPD. Correlation is made with prior CT chest from 06/28/2021. FINDINGS: No axillary lymphadenopathy is detected. No definite mediastinal or hilar lymphadenopathy is identified. No pericardial or pleural fluid is detected. The linear areas of scarring in the left upper lobe appears stable. Patient has developed an area of consolidation in the lingula with central cavitation and air-fluid levels. These may represent multifocal pulmonary abscesses. There is also a smaller region of consolidation with cavitation in the anterior aspect of the left lower lobe. The right lung is clear. The upper abdomen is unremarkable. IMPRESSION: Development of consolidation with central cavitation and air-fluid levels in the lingula and left lower lobe, likely owing to pneumonia. A multifocal micro-abscesses cannot be excluded. No other significant abnormality is detected. Dictated by: Dictated on workstation # [id number]
== END ==
LOC: RAD FS 11:19
PROVIDERS: ATTEND Family Medicine
DX: J44.9 Chronic obstructive pulmonary disease, unspecified (principal)
CPT/HCPCS: 71260

== ENCOUNTER → 2023-08-28 | Outpatient (CLI) | payer MEDICARE ==
[~2023-08-28] MED LIST changes: +GADOTERATE 0.5 MMOL/ML (CLARISCAN) 20 ML VIAL IV ONE; -HOLD METFORMIN - RECEIVED CONTRAST 20 ML VIAL IV SCH; -IOHEXOL 350 MG/ML 100 ML (OMNIPAQUE 350) VIAL IV ONE; -NS 100 ML (IVPB) BAG IV ONE
== END ==
LOC: RAD 08:39
PROVIDERS: ATTEND Family Medicine
DX: M54.50 Low back pain, unspecified (principal); R93.89 Abnormal findings on diagnostic imaging of other specified body structures